=== PATIENT | male | born 1960 | race Caucasian/White ===

== ENCOUNTER 2017-09-30 09:00 | Outpatient (RCR) | payer OTHER, SELFPAY ==
--- NOTE | 2017-09-18 13:54 | HMH.PTOPEV ---
Rehab Outpatient Evaluation Rehab OP Evaluation Start: 09/18/17 12:54 Freq: Status: Active Protocol: Document 09/18/17 13:32 PHOROWDY (Rec: 09/18/17 13:45 PHORNE [id number]) Electronically Signed By Santiago Dixon, PT 09/18/17 13:32 Outpatient Therapy Subjective History Subjective History Pt presents with c/o pain in neck x ~ 2 yrs after a tree fell on me with no resulting fx, but sof tissue injury and OA of the C-spine. Pt does report he also suffered a right knee PCL tear when he was injured and has hx of chronic low back pain. 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 He reports no radicular symptoms in either UE, but does suffer from carpal tunnel syndrome [place]. Chief Complaint Pain Stiff Symptom Type Ache Symptoms Relieved By Nothing Symptoms Aggravated By Bending/Stooping Physical Activity Lifting Prior Functional Limitations None Current Functional Limitations Reaching Lifting Driving Sleeping Symptom Description Constant but Variable Level of pain today (0-10) 8 Pain scale - at its worst (0-10) 9 Cervical Eval Palpation Cervical Muscles R Cervical Paraspinal L Cervical Paraspinal R Upper Trapezius L Thoracic Paraspinals Cervical/Thoracic Palpation Findings Tenderness Flexibility Deficits Upper Trapezius Muscle Length (R) Mild Tightness (L) Mild Tightness Levaetor Scapulae Muscle Length (R) Mild Tightness (L) Mild Tightness Passive Joint Mobility Cervical PIVM Dec: R C6/7 L C6/7 R C7/T1 L C7/T1 WNL: R OA L OA R AA L AA R C2/3 L C2/3
== END 2017-09-30 09:05 | disposition home or self-care (01) ==
LOC: PT 09:00
PROVIDERS: PCP Nurse Practitioner Family; Visit Provider Nurse Practitioner Family
DX: M54.2 Cervicalgia (principal)
CPT/HCPCS: 97010; 97014; 97035; 97110; 97140; G0283

== ENCOUNTER → 2017-10-17 14:24 | Outpatient (CLI) | payer OTHER, SELFPAY ==
[2017-10-17 18:51] LABS: Amphetamine/Metha Screen,Urine Negative ng/mL (<1000); Barbiturates Screen,Urine Negative ng/mL (<200); Benzodiazepines Screen,Urine Negative ng/mL (200); Cannabinoid Screen,Urine Negative ng/mL (<50); Cocaine Screen,Urine Negative ng/g (<300); Methadone Screen,Urine Negative ng/mL (<300); Opiate Screen,Urine Negative ng/mL (<300); Phencyclidine Screen,Urine Negative ng/mL (<25)
== END ==
PROVIDERS: Visit Provider Nurse Practitioner Family
DX: Z79.899 Other long term (current) drug therapy (principal)
CPT/HCPCS: 80305

== ENCOUNTER → 2017-11-14 13:35 | Outpatient (CLI) | payer OTHER, SELFPAY ==
[2017-11-14 18:21] LABS: Amphetamine/Metha Screen,Urine Negative ng/mL (<1000); Barbiturates Screen,Urine Negative ng/mL (<200); Benzodiazepines Screen,Urine Negative ng/mL (200); Cannabinoid Screen,Urine Negative ng/mL (<50); Cocaine Screen,Urine Negative ng/g (<300); Methadone Screen,Urine Negative ng/mL (<300); Opiate Screen,Urine Negative ng/mL (<300); Phencyclidine Screen,Urine Negative ng/mL (<25)
== END ==
PROVIDERS: Visit Provider Nurse Practitioner Family
DX: Z79.899 Other long term (current) drug therapy (principal)
CPT/HCPCS: 80305

== ENCOUNTER → 2017-11-28 09:03 | Outpatient (CLI) | payer OTHER, SELFPAY ==
--- NOTE | 2017-11-28 09:06 | MR_ITS ---
MR cervical spine wo con COMPARISON: Plain films cervical spine 02/25/2017 HISTORY: Generalized neck pain TECHNIQUE: Standard sagittal and axial sequences were performed along with a myelogram sequence. FINDINGS: There is straightening of normal curvature suggesting muscle spasm. C1-C7 appear intact. The marrow signal is normal in all cervical vertebrae. The spinal canal is normal in size throughout. There is a small broad-based central right paracentral disc protrusion C4-5 resulting in mild neural foraminal narrowing on the right side. There is a similar bilateral foraminal disc protrusion C5-6 resulting in mild neural foraminal narrowing bilaterally at this level. The remaining disks all appear normal. The prevertebral soft tissues are normal and the odontoid is normal. IMPRESSION: Findings suggesting mild muscle spasm along with mild disc protrusions at the C4-5 and C5-6 levels abutting but not contouring the cervical cord but causing mild neural foraminal changes as described above.
== END ==
PROVIDERS: PCP Nurse Practitioner Family; Visit Provider Nurse Practitioner Family
DX: M54.2 Cervicalgia (principal)
CPT/HCPCS: 72141; 76376

== ENCOUNTER → 2017-12-22 10:11 | Outpatient (POV) | payer OTHER, SELFPAY ==
[2017-12-22 10:19] VITALS: BP 161/98; PULSE 84; RESP 20; TEMP 36.6; O2SAT 99
--- NOTE | 2017-12-22 11:29 | HMH.PMCON ---
Assessment and Plan (1) Degenerative disc disease, cervical Current visit: Yes Status: Chronic Category: Medical Code(s): M50.30 - Other cervical disc degeneration, unspecified cervical region (2) Cervical radiculopathy Current visit: Yes Status: Chronic Category: Medical Code(s): M54.12 - Radiculopathy, cervical region - Assessment and plan all Dx Assessment and Plan for all problems:: We will plan a cervical epidural steroid injection at C5-C6. Patient's ORT score is 6 today. Patient is on tramadol and gabapentin from his primary care physician. Since tried and failed physical therapy, medications, anti-inflammatories. Patient has not tried injective therapy. Patient is not on any anticoagulation therapy. I will follow-up with him after his cervical epidural steroid injection. We will reassess his symptoms at that time. This note was dictated using voice recognition software and may contain errors or omissions HPI - Data of Consult Consult date: 12/22/17 Requesting Physician: Layla Yusuf APRN Primary Care Provider: Larry Smith APRN Family Provider: Larry Teixeira APRN - Consult Narrative Reason for consult: Neck pain History of present illness: Mr. Mcleod is a 57 year old male who presents today for consultation in regards to his neck pain. Patient has low neck pain along with bilateral arm pain. Patient also suffers from carpal tunnel. Patient has a recent MRI showing degenerative disc disease along with some disc protrusions. Patient states his pain is a 8 out of 10 today. He states it is constant. Patient does take tramadol and gabapentin to help alleviate his pain. 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 Patient states that 2 years ago a tree fell on top of him and that is when his symptoms began. Patient states that all activity increases his pain well medication decreases his pain. Patient states that he had been going to a pain clinic at [place] however it had since shut down. Patient has not tried injective therapy. Patient has tried physical therapy. Patient is interested in any method of treatment that will help his pain. Patient would like to continue working. CC: Layla Yusuf APRN [facility] History I have reviewed the patient's past medical history: Yes 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: Reports:: Anxiety, Depression, Gastroesophageal Reflux Disease(GERD) Denies:: Diabetes Mellitus Type 1, Diabetes Mellitus Type 2 Other 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: Reports: Arthritis, Hypothyroidism, Thyroid Disease, Other Other Surgeries: Yes: Hernia Repair Amputation: No Fractures: No - *Social History Smoking Status: Never smoker Alcohol Intake: never Alcohol Intake Frequency:: 3 or more drinks per day Substance Use Type: denies use Occupational Status: employed Housing: apartment Household Members: none - Psychiatric History Expresses thoughts of harming self/others: None Suicide Plan Description: No Plan Pschychiatric History:: Reports:: Anxiety, Depression *Family Hx:: Non-contributory Review of Systems - Review of Systems ROS General: no recent weight change, no fever, no sleep disturbances Respiratory: no cough, no shortness of air, no recurring pulmonary infections Cardiovascular/Peripheral Vascular: No chest pain, No palpitations, no edema, no shortness of breath. Gastrointestinal: no incontinence, normal bowel movements reported Genitourinary: no incontinence Musculoskeletal: Neck pain, bilateral arm pain Psychiatric: normal mood/ affect Neurological: Weakness in upper extremities at times, [denies balance issues] Meds Home Medications Medication Instructions Recorded Confirmed Type Tramadol HCl [Ultram Take Home 50 mg PO BID 12/22/17 12/22/17 History Pack 50mg (10)] Allergies Allergy/AdvReac Type Severity Reaction Status Date / Time No Known Allergies Allergy Verified 12/12/17 14:35 Objective Vital signs: Temp Pulse Resp BP Puls
--- NOTE | 2017-12-22 11:32 | P.CONS_ITS ---
Assessment and Plan (1) Degenerative disc disease, cervical Current visit: Yes Status: Chronic Category: Medical Code(s): M50.30 - Other cervical disc degeneration, unspecified cervical region (2) Cervical radiculopathy Current visit: Yes Status: Chronic Category: Medical Code(s): M54.12 - Radiculopathy, cervical region - Assessment and plan all Dx Assessment and Plan for all problems:: We will plan a cervical epidural steroid injection at C5-C6. Patient's ORT score is 6 today. Patient is on tramadol and gabapentin from his primary care physician. Since tried and failed physical therapy, medications, anti- inflammatories. Patient has not tried injective therapy. Patient is not on any anticoagulation therapy. I will follow-up with him after his cervical epidural steroid injection. We will reassess his symptoms at that time. This note was dictated using voice recognition software and may contain errors or omissions HPI - Data of Consult Consult date: 12/22/17 Requesting Physician: Layla Yusuf APRN Primary Care Provider: Larry Smith APRN Family Provider: Larry Teixeira APRN - Consult Narrative Reason for consult: Neck pain History of present illness: Mr. Mcleod is a 57 year old male who presents today for consultation in regards to his neck pain. Patient has low neck pain along with bilateral arm pain. Patient also suffers from carpal tunnel. Patient has a recent MRI showing degenerative disc disease along with some disc protrusions. Patient states his pain is a 8 out of 10 today. He states it is constant. Patient does take tramadol and gabapentin to help alleviate his pain. 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 Patient states that 2 years ago a tree fell on top of him and that is when his symptoms began. Patient states that all activity increases his pain well medication decreases his pain. Patient states that he had been going to a pain clinic at [place] however it had since shut down. Patient has not tried injective therapy. Patient has tried physical therapy. Patient is interested in any method of treatment that will help his pain. Patient would like to continue working. CC: Layla Yusuf APRN [facility] History I have reviewed the patient's past medical history: Yes 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: Reports:: Anxiety, Depression, Gastroesophageal Reflux Disease( GERD) Denies:: Diabetes Mellitus Type 1, Diabetes Mellitus Type 2 Other 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: Reports: Arthritis, Hypothyroidism, Thyroid Disease, Other Other Surgeries: Yes: Hernia Repair Amputation: No Fractures: No - *Social History Smoking Status: Never smoker Alcohol Intake: never Alcohol Intake Frequency:: 3 or more drinks per day Substance Use Type: denies use Occupational Status: employed Housing: apartment Household Members: none - Psychiatric History Expresses thoughts of harming self/others: None Suicide Plan Description: No Plan Pschychiatric History:: Reports:: Anxiety, Depression *Family Hx:: Non-contributory Review of Systems - Review of Systems ROS General: no recent weight change, no fever, no sleep disturbances Respiratory: no cough, no shortness of air, no recurring pulmonary infections Cardiovascular/Peripheral Vascular: No chest pain, No palpitations, no edema, no shortness of breath. Gastrointestinal: no incontinence, normal bowel movements reported Genitourinary: no incontinence Musculoskeletal: Neck pain, bilateral arm pain Psychiatric: normal mood/ affect Neurological: Weakness in upper extr
== END ==
PROVIDERS: PCP Nurse Practitioner Family; Visit Provider Clinical Nurse Specialist Family Health
DX: M50.30 Other cervical disc degeneration, unspecified cervical region (principal); M54.12 Radiculopathy, cervical region
CPT/HCPCS: 99202

== ENCOUNTER → 2018-01-01 14:24 | Outpatient (POV) | payer OTHER, SELFPAY | PROVIDERS: PCP Nurse Practitioner Family; Visit Provider Neurological Surgery | DX: Z00.00 Encounter for general adult medical examination without abnormal findings (principal) ==

== ENCOUNTER → 2018-03-13 13:03 | Outpatient (REF) | payer OTHER, SELFPAY ==
[2018-03-17 16:56] LABS: Amphetamine/Metha Screen,Urine Negative ng/mL (<1000); Barbiturates Screen,Urine Negative ng/mL (<200); Benzodiazepines Screen,Urine Negative ng/mL (<200); Cannabinoid Screen,Urine Negative ng/mL (<50); Cocaine Screen,Urine Negative ng/mL (<300); Methadone Screen,Urine Negative ng/mL (<300); Opiate Screen,Urine Negative ng/mL (<300); Phencyclidine Screen,Urine Negative ng/mL (<25)
== END ==
LOC: LAB 13:03
PROVIDERS: Visit Provider Nurse Practitioner Family
DX: G62.9 Polyneuropathy, unspecified (principal); M54.12 Radiculopathy, cervical region
CPT/HCPCS: 80305

== ENCOUNTER → 2018-04-14 13:03 | Outpatient (REF) | payer OTHER, SELFPAY ==
[2018-04-14 17:00] LABS: Amphetamine/Metha Screen,Urine Negative ng/mL (<1000); Barbiturates Screen,Urine Negative ng/mL (<200); Benzodiazepines Screen,Urine Negative ng/mL (<200); Cannabinoid Screen,Urine Negative ng/mL (<50); Cocaine Screen,Urine Negative ng/mL (<300); Methadone Screen,Urine Negative ng/mL (<300); Opiate Screen,Urine Negative ng/mL (<300); Phencyclidine Screen,Urine Negative ng/mL (<25)
== END ==
LOC: LAB 13:03
PROVIDERS: Visit Provider Nurse Practitioner Family
DX: Z79.899 Other long term (current) drug therapy (principal)
CPT/HCPCS: 80305

== ENCOUNTER → 2018-06-11 18:44 | Outpatient (CLI) | payer OTHER, SELFPAY ==
[2018-06-12 11:18] LABS: Basophils # 0.1 K/mm3 (0-0.2); Basophils % 0.6 % (0.1-2.0); Eosinophils # 0.1 K/mm3 (0.0-0.4); Eosinophils % 1.5 % (0.1-12.0); Hematocrit 50.5 % (42.0-52.0); Hemoglobin 16.1 g/dL (14.1-18.0); Lymphocytes # 2.1 K/mm3 (0.7-4.5); Lymphocytes % 23.7 K/mm3 (10-50); Mean Corpuscular HGB Conc 31.9 g/dL (31.8-35.4); Mean Corpuscular Hemoglobin 30.4 pg (27.0-31.2); Mean Corpuscular Volume 95.3 fl (80-94); Mean Platelet Volume 8.8 fl (7.4-10.4); Monocytes # 0.7 K/mm3 (0.1-1.0); Monocytes % 8.3 % (1.7-9.3); Neutrophils # 5.8 K/mm3 (1.8-7.8); Neutrophils % 65.9 % (37.0-80.0); Platelet Count 265 K/mm3 (142-424); Red Cell Distribution Width 13.5 % (11.5-17.5); White Blood Count 8.8 K/mm3 (4.8-10.8)
[2018-06-12 12:59] LABS: Alanine Aminotransferase 31 U/L (12-78); Albumin/Globulin Ratio 1.1 (1.1-1.8); Alkaline Phosphatase 93 U/L (46-116); Anion Gap 15.2 mEq/L (5-15); Aspartate Amino Transferase 21 U/L (15-37); Bilirubin,Total 0.6 mg/dL (0.2-1.0); Blood Urea Nitrogen 13 mg/dL (7-18); Carbon Dioxide 25 mmol/L (21.0-32.0); Chloride 101 mmol/L (98-107); Chol/HDL Ratio 4.1 (1-3.5); Cholesterol 203 mg/dL (140-200); Creatinine,Serum 1.01 mg/dL (0.70-1.30); Estimated Glomerular Filt Rate 76 ml/min (>60); GFR (African American) 92 ML/MIN (>60); Globulin 3.5 gm/dl (1.3-3.2); Glucose 94 mg/dL (74-106); HDL Cholesterol 49 mg/dL (27-67); LDL Cholesterol 134 mg/dL (0-130); Potassium 4.2 mmoL/L (3.5-5.1); Sodium 137 mmol/L (136-145); T4 (Thyroxine) 6.8 ug/dl (4.7-13.3); Total Protein,Serum 7.5 gm/dL (6.4-8.2); Triglycerides 102 mg/dL (30-200); VLDL Cholesterol 20 mg/dL (0-40)
== END ==
PROVIDERS: PCP Nurse Practitioner Family; Visit Provider Nurse Practitioner Family
DX: F41.9 Anxiety disorder, unspecified (principal); G62.9 Polyneuropathy, unspecified; I10 Essential (primary) hypertension
CPT/HCPCS: 80053; 80061; 84436; 84443; 85025

== ENCOUNTER → 2018-07-14 18:05 | Outpatient (CLI) | payer OTHER, SELFPAY ==
[2018-07-14 19:11] LABS: Amphetamine/Metha Screen,Urine Negative ng/mL (<1000); Barbiturates Screen,Urine Negative ng/mL (<200); Benzodiazepines Screen,Urine Negative ng/mL (<200); Cannabinoid Screen,Urine Negative ng/mL (<50); Cocaine Screen,Urine Negative ng/mL (<300); Methadone Screen,Urine Negative ng/mL (<300); Opiate Screen,Urine Negative ng/mL (<300); Phencyclidine Screen,Urine Negative ng/mL (<25)
== END ==
PROVIDERS: Visit Provider Nurse Practitioner Family
DX: Z79.899 Other long term (current) drug therapy (principal)
CPT/HCPCS: 80305

== ENCOUNTER → 2018-08-13 10:51 | Outpatient (CLI) | payer OTHER, SELFPAY ==
[2018-08-13 11:18] LABS: Basophils # 0.1 K/mm3 (0-0.2); Basophils % 0.6 % (0.1-2.0); Eosinophils # 0.2 K/mm3 (0.0-0.4); Eosinophils % 2.2 % (0.1-12.0); Hematocrit 47.4 % (42.0-52.0); Hemoglobin 15.8 g/dL (14.1-18.0); Lymphocytes # 1.7 K/mm3 (0.7-4.5); Lymphocytes % 21.2 % (10-50); Mean Corpuscular HGB Conc 33.3 g/dL (31.8-35.4); Mean Corpuscular Hemoglobin 30.7 pg (27.0-31.2); Mean Corpuscular Volume 92.1 fl (80-94); Monocytes # 0.5 K/mm3 (0.1-1.0); Monocytes % 6.3 % (1.7-9.3); Neutrophils # 5.5 K/mm3 (1.8-7.8); Neutrophils % 69.7 % (37.0-80.0); Platelet Count 232 K/mm3 (142-424); Red Blood Count 5.15 M/mm3 (4.60-6.20); Red Cell Distribution Width 13.5 % (11.5-17.5); White Blood Count 7.9 K/mm3 (4.8-10.8)
[2018-08-13 12:14] LABS: Erythrocyte Sedimentation Rate 18 mm/hr (0-20)
[2018-08-13 12:26] LABS: Alanine Aminotransferase 27 U/L (12-78); Albumin Level 3.4 gm/dL (3.4-5.0); Alkaline Phosphatase 87 U/L (46-116); Anion Gap 12.2 mEq/L (5-15); Aspartate Amino Transferase 15 U/L (15-37); Bilirubin,Total 0.3 mg/dL (0.2-1.0); Blood Urea Nitrogen 19 mg/dL (7-18); C-Reactive Protein 1.6 mg/L (0.0-0.9); Calcium 8.6 mg/dL (8.5-10.1); Carbon Dioxide 29 mmol/L (21.0-32.0); Chloride 104 mmol/L (98-107); Creatinine,Serum 1.11 mg/dL (0.70-1.30); Estimated Glomerular Filt Rate 69 ml/min (>60); GFR (African American) 83 ML/MIN (>60); Globulin 3.3 gm/dl (1.3-3.2); Glucose 114 mg/dL (74-106); Potassium 4.2 mmoL/L (3.5-5.1); Sodium 141 mmol/L (136-145); Total Protein,Serum 6.7 gm/dL (6.4-8.2)
[2018-08-14 12:11] LABS: Anti-Centromere B Antibodies <0.2 AI (0.0-0.9); Anti-Jo-1 <0.2 AI (0.0-0.9); Anti-Smith Antibody <0.2 AI (0.0-0.9); Antichromatin Antibodies <0.2 AI (0.0-0.9); Antiscleroderma-70 Antibodies <0.2 AI (0.0-0.9); RNP Antibodies <0.2 AI (0.0-0.9); Sjogren's Anti-SS-A <0.2 AI (0.0-0.9); Sjogren's Anti-SS-B <0.2 AI (0.0-0.9)
[2018-08-15 10:55] LABS: Anti-Cyclic Citrullinated Pept 20 units (0-19); Anti-DNA (DS) Ab Qn 2 IU/mL (0-9); RA Latex Turbid. 10.3 IU/mL (0.0-13.9)
[2018-08-16 13:08] LABS: PTT-LA 58.2 sec (0.0-51.9); PTT-LA Incub Mix 53.4 sec (0.0-48.9); PTT-LA Mix 46.5 sec (0.0-48.9); dRVVT 57.7 sec (0.0-47.0); dRVVT Mix 45.8 sec (0.0-47.0)
[2018-08-16 21:45] LABS: Hexagonal Phase Phospholipid 25 sec (0-11); Lupus Reflex Interpretation Comment: (.)
== END ==
PROVIDERS: Visit Provider Nurse Practitioner Family
DX: M54.12 Radiculopathy, cervical region (principal)
CPT/HCPCS: 36415; 80053; 85025; 85613; 85651; 86140; 86200; 86225; 86235; 86431

== ENCOUNTER → 2018-10-19 09:25 | Outpatient (POV) | payer OTHER, SELFPAY ==
[2018-10-19 09:45] VITALS: BP 149/98; PULSE 87; RESP 18; O2SAT 98; BMI 35.5
--- NOTE | 2018-10-19 09:56 | HMH.PAINSOAP ---
[facility] Pain Management SOAP Note Subjective:: Patient is a pleasant 58-year-old white male who presents today for follow-up. Patient has cervical epidural steroid injection last year. Patient did not get any relief from that. He then went to [place] pain management and received facet joint injections in which he did not get relief for. He was seen by Dr. Chamorro which deemed him not a cervical surgical candidate. Patient states that most of his pain at this time is in his low back. He states that he has difficulty with walking long distances and finds himself leaning over in order to get relief. He rates his pain a 7 out of 10 today. He states is constant. Patient is recently done physical therapy and is continuing his home stretching program. ROS General: no recent weight change, no fever, no sleep disturbances Respiratory: no cough, no shortness of air, no recurring pulmonary infections Cardiovascular/Peripheral Vascular: No chest pain, No palpitations, no edema, no shortness of breath. Gastrointestinal: no incontinence, normal bowel movements reported Genitourinary: no incontinence Musculoskeletal: Back pain, neck pain Psychiatric: normal mood/ affect Neurological: Weakness bilateral lower extremities while walking, [denies balance issues] Objective:: Physical Exam General: Alert and oriented x3, no acute distress, pleasant and cooperative, [on room air] Lungs: Resps E/U, Symmetrical chest expansion, Eyes: PERRL Musculoskeletal: Flexion and extension of lumbar spine somewhat guarded secondary to pain, deep tendon reflexes normal, strength in upper and lower extremities [5/5], [abnormal gait noted] Neurological: speech clear, drag sawyer equal, no gross sensory deficits Assessment:: Degenerative disc disease cervical and lumbar, cervical radiculopathy lumbar radiculopathy, spinal stenosis Plan:: Patient does not have any recent lumbar imaging I believe it would be beneficial to order new lumbar imaging in order to determine pathology. Patient may be a candidate for a mildly invasive procedure in order to correct this issue. I will follow-up with the patient after his lumbar MRI. Dr. Gonzalez has reviewed this note and agrees with this plan of care. This note was dictated using voice recognition software and may contain errors or omissions
--- NOTE | 2018-10-19 09:59 | P.CONS_ITS ---
[facility] Pain Management SOAP Note Subjective:: Patient is a pleasant 58-year-old white male who presents today for follow-up. Patient has cervical epidural steroid injection last year. Patient did not get any relief from that. He then went to [place] pain management and received facet joint injections in which he did not get relief for. He was seen by Dr. Chamorro which deemed him not a cervical surgical candidate. Patient states that most of his pain at this time is in his low back. He states that he has difficulty with walking long distances and finds himself leaning over in order to get relief. He rates his pain a 7 out of 10 today. He states is constant. Patient is recently done physical therapy and is continuing his home stretching program. ROS General: no recent weight change, no fever, no sleep disturbances Respiratory: no cough, no shortness of air, no recurring pulmonary infections Cardiovascular/Peripheral Vascular: No chest pain, No palpitations, no edema, no shortness of breath. Gastrointestinal: no incontinence, normal bowel movements reported Genitourinary: no incontinence Musculoskeletal: Back pain, neck pain Psychiatric: normal mood/ affect Neurological: Weakness bilateral lower extremities while walking, [denies balance issues] Objective:: Physical Exam General: Alert and oriented x3, no acute distress, pleasant and cooperative, [on room air] Lungs: Resps E/U, Symmetrical chest expansion, Eyes: PERRL Musculoskeletal: Flexion and extension of lumbar spine somewhat guarded secondary to pain, deep tendon reflexes normal, strength in upper and lower extremities [5/5], [abnormal gait noted] Neurological: speech clear, branch administrator equal, no gross sensory deficits Assessment:: Degenerative disc disease cervical and lumbar, cervical radiculopathy lumbar radiculopathy, spinal stenosis Plan:: Patient does not have any recent lumbar imaging I believe it would be beneficial to order new lumbar imaging in order to determine pathology. Patient may be a candidate for a mildly invasive procedure in order to correct this issue. I will follow-up with the patient after his lumbar MRI. Dr. Gonzalez has reviewed this note and agrees with this plan of care. This note was dictated using voice recognition software and may contain errors or omissions
== END ==
PROVIDERS: PCP Nurse Practitioner Family; Visit Provider Clinical Nurse Specialist Family Health
DX: M50.10 Cervical disc disorder with radiculopathy, unspecified cervical region (principal); M51.16 Intervertebral disc disorders with radiculopathy, lumbar region
CPT/HCPCS: 99213

== ENCOUNTER → 2018-10-23 14:31 | Outpatient (CLI) | payer OTHER, SELFPAY ==
[2018-10-23 18:20] LABS: Amphetamine/Metha Screen,Urine Negative ng/mL (<1000); Barbiturates Screen,Urine Negative ng/mL (<200); Benzodiazepines Screen,Urine Negative ng/mL (<200); Cannabinoid Screen,Urine Negative ng/mL (<50); Cocaine Screen,Urine Negative ng/mL (<300); Methadone Screen,Urine Negative ng/mL (<300); Opiate Screen,Urine Negative ng/mL (<300); Phencyclidine Screen,Urine Negative ng/mL (<25)
== END ==
PROVIDERS: Visit Provider Nurse Practitioner Family
DX: G62.9 Polyneuropathy, unspecified (principal)
CPT/HCPCS: 80305

== ENCOUNTER → 2018-11-09 11:00 | Outpatient (POV) | payer OTHER, SELFPAY ==
[2018-11-09 11:30] VITALS: BP 165/87; PULSE 83; RESP 18; O2SAT 98; BMI 37.1
--- NOTE | 2018-11-09 11:54 | XR_ITS ---
EXAM: XR lumbar spine min 4V HISTORY: Low back pain radiating down both legs ITS.REASON: BACK PAIN ORDERING PHYSICIAN: Layla Yusuf PATIENT AGE: 58 years COMPARISON: 02/25/2017 FINDINGS: Normal alignment. Anterior osteophytes are present at L2, L3, L4, and L5. No fracture or dislocation. No lytic or blastic change. IMPRESSION: Mild degenerative changes, no acute finding with no significant change
--- NOTE | 2018-11-10 07:56 | P.CONS_ITS ---
[facility] Pain Management SOAP Note Subjective:: Patient is a pleasant 58-year-old white male who presents today for follow-up. Patient recently had his MRI denied by insurance. We will get a x-ray today to see if this is something we need to look further into. Most of his pain is in his low back and bilateral legs. He finds that he has weakness in his legs at times. He rates his pain a 7 out of 10 which is constant. He is finished 6 months of conservative therapy that includes both physical therapy and occasions. Patient is continuing a home stretching program and currently on anti-inflammatories. ROS General: no recent weight change, no fever, no sleep disturbances Respiratory: no cough, no shortness of air, no recurring pulmonary infections Cardiovascular/Peripheral Vascular: No chest pain, No palpitations, no edema, no shortness of breath. Gastrointestinal: no incontinence, normal bowel movements reported Genitourinary: no incontinence Musculoskeletal: Back pain, neck pain, leg pain Psychiatric: normal mood/ affect Neurological: Weakness in bilateral legs at times especially while walking, [denies balance issues] Objective:: Physical Exam General: Alert and oriented x3, no acute distress, pleasant and cooperative, [on room air] Lungs: Resps E/U, Symmetrical chest expansion, Eyes: PERRL Musculoskeletal: Flexion and extension of lumbar spine somewhat guarded secondary to pain, deep tendon reflexes normal, strength in upper 5/5 and lower extremities 4/5, [abnormal gait noted] Neurological: speech clear, vp site equal, no gross sensory deficits Assessment:: Degenerative disc disease lumbar and cervical spine with lumbar and cervical radiculopathy Plan:: We did get an x-ray showing some abnormalities I believe a MRI will help us better determine the pathology of his pain. I will follow-up with the patient after his MRI and reassess his symptoms at that time. He has been instructed to call the office if he has any issues prior to his next appointment. Dr. Gonzalez has reviewed this note and agrees with this plan of care. This note was dictated using voice recognition software and may contain errors or omissions
== END ==
PROVIDERS: PCP Nurse Practitioner Family; Visit Provider Clinical Nurse Specialist Family Health
DX: M51.36 Other intervertebral disc degeneration, lumbar region (principal); M50.10 Cervical disc disorder with radiculopathy, unspecified cervical region; M54.9 Dorsalgia, unspecified
CPT/HCPCS: 72110; 99213

== ENCOUNTER → 2018-12-01 11:07 | Outpatient (POV) | payer OTHER, SELFPAY ==
[2018-12-01 12:05] VITALS: BP 137/86; PULSE 79; RESP 18; O2SAT 98; BMI 37.1
--- NOTE | 2018-12-01 13:08 | HMH.PAINSOAP ---
[facility] Pain Management SOAP Note Subjective:: Is a pleasant 58-year-old white male who presents today for follow-up. Patient has quite a bit of neck and low back pain. Patient and I had a discussion in regards to neuro stimulation today. He is interested in pursuing this. Patient has an MRI showing degenerative changes of the cervical spine and also degenerative changes of his back were seen on x-ray. Patient has tried and failed epidural injections along with physical therapy. Patient has tried and failed multiple medications. He rates his pain a constant 7 out of 10. He has finished over 6 months of conservative therapy including the physical therapy. Patient has failed to have any progression or improvement within the last 6 months. Patient is actually worsening. He is trying to continue home stretching program however he is becoming less and less able. Patient is currently on anti-inflammatories. ROS General: no recent weight change, no fever, no sleep disturbances Respiratory: no cough, no shortness of air, no recurring pulmonary infections Cardiovascular/Peripheral Vascular: No chest pain, No palpitations, no edema, no shortness of breath. Gastrointestinal: no incontinence, normal bowel movements reported Genitourinary: no incontinence Musculoskeletal: Back pain, neck pain, leg pain, arm pain Psychiatric: normal mood/ affect Neurological: Weakness upper extremities at times, [denies balance issues] Objective:: Physical Exam General: Alert and oriented x3, no acute distress, pleasant and cooperative, [on room air] Lungs: Resps E/U, Symmetrical chest expansion, Eyes: PERRL Musculoskeletal: Flexion and extension of cervical and lumbar spine somewhat guarded secondary to pain, deep tendon reflexes normal, strength in upper and lower extremities [5/5], [abnormal gait noted] Neurological: speech clear, corporate account executive equal, no gross sensory deficits Assessment:: Degenerative disc disease cervical and lumbar spine with cervical and lumbar radiculopathy, CRPS type II Plan:: We will set him up for a neurostimulator trial. We will cover both cervical and lumbar spine pain along with the radiculopathy. I will follow-up with the patient after his psychological evaluation to help determine if he is a good candidate for this. He is not on any anticoagulation therapy. Dr. Gonzalez has reviewed this note and agrees with this plan of care. This note was dictated using voice recognition software and may contain errors or omissions
== END ==
PROVIDERS: PCP Nurse Practitioner Family; Visit Provider Clinical Nurse Specialist Family Health
DX: M50.10 Cervical disc disorder with radiculopathy, unspecified cervical region (principal); M54.16 Radiculopathy, lumbar region
CPT/HCPCS: 99212

== ENCOUNTER → 2018-12-18 13:55 | Outpatient (CLI) | payer OTHER, SELFPAY ==
[2018-12-18 15:14] LABS: Amphetamine/Metha Screen,Urine Negative ng/mL (<1000); Barbiturates Screen,Urine Negative ng/mL (<200); Benzodiazepines Screen,Urine Negative ng/mL (<200); Cannabinoid Screen,Urine Negative ng/mL (<50); Cocaine Screen,Urine Negative ng/mL (<300); Methadone Screen,Urine Negative ng/mL (<300); Opiate Screen,Urine Negative ng/mL (<300); Phencyclidine Screen,Urine Negative ng/mL (<25)
== END ==
PROVIDERS: Visit Provider Nurse Practitioner Family
DX: Z79.899 Other long term (current) drug therapy (principal)
CPT/HCPCS: 80305

== ENCOUNTER → 2019-02-01 14:27 | Outpatient (CLI) | payer OTHER, SELFPAY ==
--- NOTE | 2019-02-01 14:29 | US_ITS ---
MM Dig mamm BI DX w/CAD, US breast RT complete INDICATION: Palpable right breast nodule ORDERING PHYSICIAN: Larry Smith APRN PATIENT AGE: 58 years COMPARISON: None TECHNIQUE: Standard images performed along spot compression views of the right breast FINDINGS: There is heterogeneously dense fibroglandular tissue in the right retroareolar region consistent with gynecomastia. No malignant appearing mass or malignant appearing microcalcification is evident. Ultrasound right breast: Irregular hypoechoic fibroglandular tissue noted in the retroareolar region consistent with gynecomastia. IMPRESSION: Gynecomastia on the right. No evidence of malignancy BI-RADS Category: 2 Benign Finding(s) Follow-up suggested as clinically warranted (A letter has been sent to the patient regarding results of the study.)
== END ==
PROVIDERS: PCP Nurse Practitioner Family; Visit Provider Nurse Practitioner Family
DX: N64.4 Mastodynia (principal)
CPT/HCPCS: 76641; 77066

== ENCOUNTER → 2019-02-09 14:23 | Outpatient (CLI) | payer OTHER, SELFPAY ==
[2019-02-09 14:51] LABS: Amphetamine/Metha Screen,Urine Negative ng/mL (<1000); Barbiturates Screen,Urine Negative ng/mL (<200); Benzodiazepines Screen,Urine Negative ng/mL (<200); Cannabinoid Screen,Urine Negative ng/mL (<50); Cocaine Screen,Urine Negative ng/mL (<300); Methadone Screen,Urine Negative ng/mL (<300); Opiate Screen,Urine Negative ng/mL (<300); Phencyclidine Screen,Urine Negative ng/mL (<25)
== END ==
PROVIDERS: Visit Provider Nurse Practitioner Family
DX: Z79.899 Other long term (current) drug therapy (principal)
CPT/HCPCS: 80305

== ENCOUNTER → 2019-03-05 13:44 | Outpatient (CLI) | payer OTHER, SELFPAY ==
[2019-03-05 14:13] LABS: Amphetamine/Metha Screen,Urine Negative ng/mL (<1000); Barbiturates Screen,Urine Negative ng/mL (<200); Benzodiazepines Screen,Urine Negative ng/mL (<200); Cannabinoid Screen,Urine Negative ng/mL (<50); Cocaine Screen,Urine Negative ng/mL (<300); Methadone Screen,Urine Negative ng/mL (<300); Opiate Screen,Urine Negative ng/mL (<300); Phencyclidine Screen,Urine Negative ng/mL (<25)
== END ==
PROVIDERS: Visit Provider Nurse Practitioner Family
DX: Z79.899 Other long term (current) drug therapy (principal)
CPT/HCPCS: 80305

== ENCOUNTER → 2019-04-09 14:37 | Outpatient (CLI) | payer OTHER, SELFPAY ==
--- NOTE | 2019-04-09 14:41 | XR_ITS ---
PROCEDURE: XR ANKLE RT MIN 3V CLINICAL INDICATION: Right ankle fx Follow-up fracture COMPARISON: XR ANKLE RT MIN 3V from 04/01/2019 XR ANKLE RT MIN 3V from 04/01/2019 FINDINGS: Status post closed reduction lateral malleolar and medial malleolar fractures. There is good alignment of the lateral malleolar fracture. The medial malleolar fracture is distracted distally by 6 mm with mild anterior displacement by 1 cm and mild lateral displacement by 5 mm. A cast is in place IMPRESSION: Status post close reduction distal tib fib fracture with improvement in alignment and displacement with some residual distraction and displacement of the medial malleolar fracture Dictated by: Akbar Ramirez MD 04/09/2019 15:26 Signed by: <Electronically signed by Akbar Ramirez MD in [place]> 04/09/2019 15:26
== END ==
PROVIDERS: PCP Nurse Practitioner Family; Visit Provider Orthopaedic Surgery
DX: S82.891A Other fracture of right lower leg, initial encounter for closed fracture (principal)
CPT/HCPCS: 73610

== ENCOUNTER → 2019-04-12 12:06 | Outpatient (CLI) | payer OTHER, SELFPAY ==
[2019-04-12 12:22] LABS: Basophils # 0.1 K/mm3 (0-0.2); Basophils % 0.8 % (0.1-2.0); Eosinophils # 0.2 K/mm3 (0.0-0.4); Eosinophils % 2.8 % (0.1-12.0); Hematocrit 44.4 % (42.0-52.0); Hemoglobin 14.7 g/dL (14.1-18.0); Lymphocytes # 1.4 K/mm3 (0.7-4.5); Lymphocytes % 18.8 % (10-50); Mean Corpuscular HGB Conc 33.1 g/dL (31.8-35.4); Mean Corpuscular Hemoglobin 30.9 pg (27.0-31.2); Mean Corpuscular Volume 93.3 fl (80-94); Mean Platelet Volume 7.2 fl (7.4-10.4); Monocytes # 0.6 K/mm3 (0.1-1.0); Monocytes % 8.6 % (1.7-9.3); Neutrophils # 4.9 K/mm3 (1.8-7.8); Neutrophils % 69.1 % (37.0-80.0); Platelet Count 244 K/mm3 (142-424); Red Blood Count 4.76 M/mm3 (4.60-6.20); Red Cell Distribution Width 13.1 % (11.5-17.5); White Blood Count 7.2 K/mm3 (4.8-10.8)
--- NOTE | 2019-04-12 12:26 | ECG_ITS ---
APPROVED REPORT Exam: Resting ECG HR:84 bpm ECG Measurements Heart Rate 84 AXES UT 142 P 28 QRSd 86 QRS 3 QT 350 T 23 QTc 413 <Conclusion> Normal sinus rhythm Normal ECG Electronically signed by : Josué Espinoza, 04/12/2019 16:05:24
--- NOTE | 2019-04-12 12:26 | XR_ITS ---
PROCEDURE: XR CHEST 2V CLINICAL HISTORY: Pre-op, htn Hypertension COMPARISON: CXR CHEST(2 VIEWS-NOT PORTABLE) from 08/16/2014 FINDINGS: Normal heart size. Mediastinum is slightly prominent and may be secondary to tortuosity/ectasia of the aorta. Not significantly changed Old granulomatous disease No acute bony abnormalities. IMPRESSION: No change with no acute finding Dictated by: Akbar Ramirez MD 04/12/2019 15:12 Signed by: <Electronically signed by Akbar Ramirez MD in [place]> 04/12/2019 15:12
[2019-04-12 12:30] LABS: INR 0.98 (0.9-1.1); Prothrombin Time 10.2 seconds (9.4-11.8)
[2019-04-12 13:08] LABS: Alanine Aminotransferase 22 U/L (12-78); Albumin Level 3.2 gm/dL (3.4-5.0); Albumin/Globulin Ratio 0.9 (1.1-1.8); Alkaline Phosphatase 79 U/L (46-116); Anion Gap 12.5 mEq/L (5-15); Aspartate Amino Transferase 11 U/L (15-37); Bilirubin,Total 0.3 mg/dL (0.2-1.0); Blood Urea Nitrogen 21 mg/dL (7-18); Calcium 8.8 mg/dL (8.5-10.1); Carbon Dioxide 28 mmol/L (21.0-32.0); Chloride 103 mmol/L (98-107); Creatinine,Serum 1.01 mg/dL (0.70-1.30); Estimated Glomerular Filt Rate 76 ml/min (>60); GFR (African American) 92 ML/MIN (>60); Globulin 3.4 gm/dl (1.3-3.2); Glucose 104 mg/dL (74-106); Potassium 4.5 mmoL/L (3.5-5.1); Sodium 139 mmol/L (136-145); Total Protein,Serum 6.6 gm/dL (6.4-8.2)
== END ==
PROVIDERS: Visit Provider Orthopaedic Surgery
DX: S82.891A Other fracture of right lower leg, initial encounter for closed fracture (principal); S82.851A Displaced trimalleolar fracture of right lower leg, initial encounter for closed fracture; S93.04XA Dislocation of right ankle joint, initial encounter
CPT/HCPCS: 36415; 71046; 80053; 85025; 85610; 93005

== ENCOUNTER → 2019-04-26 08:55 | Outpatient (CLI) | payer OTHER, SELFPAY ==
--- NOTE | 2019-04-26 08:59 | XR_ITS ---
PROCEDURE: XR ANKLE RT MIN 3V CLINICAL INDICATION: Ankle dislocation Follow-up ORIF COMPARISON: XR ANKLE RT MIN 3V from 04/01/2019 XR ANKLE RT MIN 3V from 04/09/2019 XR ANKLE RT 2V from 04/15/2019 FINDINGS: Status post ORIF bimalleolar fracture with a bone plate along the distal aspect of the fibula and 2 screws stabilizing the medial malleolar fracture. There is good alignment of the fracture fragments. Artifact is present from overlying splint. Skin clips are present as well. The ankle mortise does not appear widened IMPRESSION: Good alignment status post ORIF distal tib fib fracture Dictated by: Akbar Ramirez MD 04/26/2019 10:37 Electronically signed by Akbar Ramirez MD in [place] 04/26/2019 10:37
== END ==
PROVIDERS: PCP Emergency Medicine; Visit Provider Orthopaedic Surgery
DX: S82.843A Displaced bimalleolar fracture of unspecified lower leg, initial encounter for closed fracture (principal); S93.06XA Dislocation of unspecified ankle joint, initial encounter
CPT/HCPCS: 73610

== ENCOUNTER 2019-04-26 10:42 | Outpatient (RCR) | payer OTHER, SELFPAY | END 2019-04-26 11:00 | disposition home or self-care (01) | LOC: PT 10:42 | PROVIDERS: Visit Provider Orthopaedic Surgery | DX: S82.841D Displaced bimalleolar fracture of right lower leg, subsequent encounter for closed fracture with routine healing (principal); S93.04XA Dislocation of right ankle joint, initial encounter ==

== ENCOUNTER 2019-04-28 10:50 | Outpatient (RCR) | payer OTHER, SELFPAY ==
--- NOTE | 2019-04-28 11:20 | HMH.PTOPWND ---
Rehab Outpt Wound Evaluation Rehab OP Wound Evaluation Start: 04/28/19 11:14 Freq: Status: Active Protocol: Document 04/28/19 11:14 SHERRILL (Rec: 04/28/19 11:20 PHOROWDY [id number]) Electronically Signed By Santiago Dixon, PT 04/28/19 11:14 Subjective/History History History Pt is 58 yowm who present with right LE edema ~ 2 wks S/P right ankle ORIF. He reports original injury occured ~ 1 mo ago when he stepped wrong going down a curb with the reulting fxs and ankle dislocation. He reports expected post-op edema and hematoma. He also c/o pain at all times in the ankle. He reports no unexpected numbness or tinling in the foot or ankle. Worst palpation tenderness is superior to the ankle itself. He has hx of HTN and chronic neck and LB pain. Subjective Subjective Currently he reports 7/10 pain in the right ankle. Lymphedema Eval Classification of Lymphedema Secondary Lymphedema Yes Post-Surgical Lymphedema Yes Post Traumatic Lymphedema Yes Stemmer's sign Stemmer's Sign no Stage of Lymphedema Lymphedema stages Stage I (Pitting edema, reduces w/ elevation, no fibrosis) Skin Changes Dry Skin Yes Pain Scale Pain Scale (0-10) 7 Affected Extremities Areas Affected by Lymphedema/Edema Right Lower Extremity Manual Lymphatic Drainage Treatment Area MLD Treatment Area Right Lower Extremity Wound Problems/Impairments Impairments Problems/Impairmments Palpation Tenderness,Impaired Range of Motion,Impaired Strength,Impaired Endurance, Impaired Gait Pattern,Impaired Walking,Impaired Standing, Impaired Recreational Activities,Increased Edema, Lymphedema Present,Wound Care Needs,Subjective C/O Pain, Impaired Self Care/Self Management Prognosis Rehab Potential Good Clinical Impression Consistent with Diagnosis Yes Short Term Goals Number of Weeks 4 Decreased Palpation Tenderness Yes: to m
== END 2019-04-28 10:55 | disposition home or self-care (01) ==
LOC: PT 10:50
PROVIDERS: Visit Provider Orthopaedic Surgery
DX: S82.851A Displaced trimalleolar fracture of right lower leg, initial encounter for closed fracture (principal); S93.06XA Dislocation of unspecified ankle joint, initial encounter
CPT/HCPCS: 97162

== ENCOUNTER → 2019-05-17 12:55 | Outpatient (CLI) | payer OTHER, SELFPAY ==
--- NOTE | 2019-05-17 12:58 | XR_ITS ---
PROCEDURE: XR ANKLE RT MIN 3V CLINICAL INDICATION: Ankle dislocation COMPARISON: XR ANKLE RT MIN 3V from 04/09/2019 XR ANKLE RT MIN 3V from 04/15/2019 XR ANKLE RT 2V from 04/15/2019 FINDINGS: Skin naye and splint device have been removed. Orthopedic hardware stable. Bone density, joint spaces and alignment are unchanged. IMPRESSION: No change. Dictated by: Jack Whitley 05/17/2019 14:43 Electronically signed by Jack Whitley in [place] 05/17/2019 14:43
== END ==
PROVIDERS: PCP Emergency Medicine; Visit Provider Orthopaedic Surgery
DX: S82.841D Displaced bimalleolar fracture of right lower leg, subsequent encounter for closed fracture with routine healing
CPT/HCPCS: 73610

== ENCOUNTER → 2019-06-18 12:31 | Outpatient (CLI) | payer OTHER, SELFPAY ==
--- NOTE | 2019-06-18 12:36 | XR_ITS ---
PROCEDURE: XR ANKLE RT MIN 3V CLINICAL INDICATION: Ankle Fu Follow-up fracture/ORIF COMPARISON: XR ANKLE RT MIN 3V from 04/15/2019 XR ANKLE RT 2V from 04/15/2019 XR ANKLE RT MIN 3V from 04/26/2019 XR ANKLE RT MIN 3V from 05/17/2019 FINDINGS: Good alignment of bony hardware previously placed at the distal tibia and fibula. Ankle mortise is preserved. Good alignment of the bony fragments. IMPRESSION: No change good alignment status post ORIF distal tib fib Dictated by: Akbar Ramirez MD 06/18/2019 14:13 Electronically signed by Akbar Ramirez MD in [place] 06/18/2019 14:13
== END ==
PROVIDERS: PCP Nurse Practitioner Family; Visit Provider Orthopaedic Surgery
DX: S82.851A Displaced trimalleolar fracture of right lower leg, initial encounter for closed fracture (principal)
CPT/HCPCS: 73610

== ENCOUNTER 2019-06-18 13:38 | Outpatient (RCR) | payer OTHER, SELFPAY | END 2019-06-18 14:00 | disposition home or self-care (01) | LOC: PT 13:38 | PROVIDERS: Visit Provider Orthopaedic Surgery | DX: S93.06XA Dislocation of unspecified ankle joint, initial encounter (principal) | CPT/HCPCS: 97760 ==

== ENCOUNTER → 2019-07-19 08:12 | Outpatient (CLI) | payer OTHER, SELFPAY ==
--- NOTE | 2019-07-19 08:16 | XR_ITS ---
PROCEDURE: XR ANKLE RT MIN 3V CLINICAL INDICATION: Ankle dislocation Follow-up ORIF fracture dislocation COMPARISON: XR ANKLE RT MIN 3V from 04/15/2019 XR ANKLE RT MIN 3V from 04/26/2019 XR ANKLE RT MIN 3V from 05/17/2019 XR ANKLE RT MIN 3V from 06/18/2019 FINDINGS: Status post ORIF distal tib fib as previously described with 80 lateral bone plate at the fibula 2 screws through the medial malleolus and 2 screws traversing both distal fibula into the tibia. There is good alignment with healing fractures noted. The ankle mortise is well preserved. IMPRESSION: Good alignment status post ORIF distal tib fib fractures Dictated by: Akbar Ramirez MD 07/19/2019 20:23 Electronically signed by Akbar Ramirez MD in [place] 07/19/2019 20:23
== END ==
PROVIDERS: PCP Emergency Medicine; Visit Provider Orthopaedic Surgery
DX: S82.843A Displaced bimalleolar fracture of unspecified lower leg, initial encounter for closed fracture (principal); S93.439A Sprain of tibiofibular ligament of unspecified ankle, initial encounter
CPT/HCPCS: 73610

== ENCOUNTER → 2019-09-30 13:25 | Outpatient (CLI) | payer OTHER, SELFPAY ==
[2019-09-30 13:39] LABS: Basophils % 0.6 % (0.1-2.0); Eosinophils # 0.2 K/mm3 (0.0-0.4); Hematocrit 50.8 % (42.0-52.0); Hemoglobin 16.9 g/dL (14.1-18.0); Lymphocytes # 1.7 K/mm3 (0.7-4.5); Lymphocytes % 23.2 % (10-50); Mean Corpuscular HGB Conc 33.3 g/dL (31.8-35.4); Mean Corpuscular Hemoglobin 30.4 pg (27.0-31.2); Mean Corpuscular Volume 91.4 fl (80-94); Mean Platelet Volume 8.4 fl (7.4-10.4); Monocytes # 0.5 K/mm3 (0.1-1.0); Monocytes % 6.9 % (1.7-9.3); Neutrophils # 4.9 K/mm3 (1.8-7.8); Neutrophils % 66.4 % (37.0-80.0); Platelet Count 246 K/mm3 (142-424); Red Blood Count 5.56 M/mm3 (4.60-6.20); Red Cell Distribution Width 13.8 % (11.5-17.5); White Blood Count 7.4 K/mm3 (4.8-10.8)
[2019-09-30 14:14] LABS: Alanine Aminotransferase 21 U/L (21-72); Albumin Level 3.8 g/dL (3.4-5.0); Albumin/Globulin Ratio 1.1 (1.1-1.8); Alkaline Phosphatase 92 U/L (46-116); Anion Gap 13.6 mEq/L (5-15); Aspartate Amino Transferase 16 U/L (15-37); Bilirubin,Total 0.5 mg/dL (0.2-1.0); Blood Urea Nitrogen 19 mg/dL (7-18); Calcium 9.2 mg/dL (8.5-10.1); Carbon Dioxide 28 mmol/L (21.0-32.0); Chloride 104 mmol/L (98-107); Cholesterol 210 mg/dL (140-200); Creatinine,Serum 1.06 mg/dL (0.70-1.30); Estimated Glomerular Filt Rate 72 ml/min (>60); GFR (African American) 87 ML/MIN (>60); Globulin 3.6 gm/dl (1.3-3.2); Glucose 92 mg/dL (74-106); HDL Cholesterol 42 mg/dL (27-67); LDL Cholesterol 144 mg/dL (0-130); Potassium 4.6 mmoL/L (3.5-5.1); Sodium 141 mmol/L (137-145); Thyroid Stimulating Hormone 2.92 uIU/ml (0.358-3.740); Total Protein,Serum 7.4 g/dL (6.4-8.2); Triglycerides 121 mg/dL (30-200); VLDL Cholesterol 24 mg/dL (0-40)
[2019-09-30 14:49] LABS: Hemoglobin A1C 5.4 % (0.0-7.0)
[2019-10-01 10:51] LABS: Vitamin D 25 Hydroxy 8.7 ng/mL (30.0-100.0)
== END ==
PROVIDERS: Visit Provider Nurse Practitioner Family
DX: E11.9 Type 2 diabetes mellitus without complications (principal); E55.9 Vitamin D deficiency, unspecified; Z79.899 Other long term (current) drug therapy
CPT/HCPCS: 80053; 80061; 82652; 83036; 84436; 84443; 85025

== ENCOUNTER → 2019-10-14 07:41 | Outpatient (CLI) | payer OTHER, SELFPAY | PROVIDERS: PCP Nurse Practitioner Family; Visit Provider Nurse Practitioner Family | DX: M79.601 Pain in right arm (principal) ==

== ENCOUNTER → 2020-05-26 10:39 | Outpatient (CLI) | payer OTHER, SELFPAY ==
[2020-05-30 15:38] LABS: Amphetamine/Metha Screen,Urine Negative ng/ml (<1000)
[2020-05-30 15:39] LABS: Barbiturates Screen,Urine Negative ng/ml (<200)
[2020-05-30 15:40] LABS: Benzodiazepines Screen,Urine Negative ng/ml (<200); Cannabinoid Screen,Urine Negative ng/ml (<50)
[2020-05-30 15:41] LABS: Cocaine Screen,Urine Negative ng/ml (<300); Methadone Screen,Urine Negative ng/ml (<300)
[2020-05-30 15:42] LABS: Opiate Screen,Urine Negative ng/ml (<300)
[2020-05-30 15:43] LABS: Phencyclidine Screen,Urine Negative ng/ml (<25)
== END ==
PROVIDERS: Visit Provider Nurse Practitioner Family
DX: M54.2 Cervicalgia (principal); Z79.899 Other long term (current) drug therapy
CPT/HCPCS: 80305

== ENCOUNTER → 2020-08-23 19:43 | Outpatient (CLI) | payer OTHER, SELFPAY ==
[2020-08-23 20:04] LABS: Basophils # 0.3 K/mm3 (0-0.2); Basophils % 3.4 % (0.1-2.0); Eosinophils # 0.2 K/mm3 (0.0-0.4); Eosinophils % 2.6 % (0.1-12.0); Hematocrit 51.6 % (42.0-52.0); Hemoglobin 17.8 g/dL (14.1-18.0); Lymphocytes # 1.7 K/mm3 (0.7-4.5); Lymphocytes % 20.4 % (10-50); Mean Corpuscular HGB Conc 34.4 g/dL (31.8-35.4); Mean Corpuscular Hemoglobin 31.2 pg (27.0-31.2); Mean Corpuscular Volume 90.8 fl (80-94); Mean Platelet Volume 12.9 fl (7.4-10.4); Monocytes # 0.8 K/mm3 (0.1-1.0); Monocytes % 9.4 % (1.7-9.3); Neutrophils # 5.2 K/mm3 (1.8-7.8); Neutrophils % 64.2 % (37.0-80.0); Platelet Count 189 K/mm3 (142-424); Red Blood Count 5.69 M/mm3 (4.60-6.20); White Blood Count 8.1 K/mm3 (4.8-10.8)
[2020-08-23 20:07] LABS: Alanine Aminotransferase 17 U/L (12-78); Albumin Level 4.4 g/dl (3.5-5.0); Albumin/Globulin Ratio 1.3 (1.1-1.8); Alkaline Phosphatase 107 U/L (38-126); Anion Gap 11.5 mEq/L (5-15); Aspartate Amino Transferase 24 U/L (17-59); Bilirubin,Total 0.6 mg/dl (0.2-1.3); Blood Urea Nitrogen 16 mg/dl (9-20); Calcium 9.7 mg/dl (8.4-10.2); Carbon Dioxide 33 mmol/L (22.0-30.0); Chloride 100 mmol/L (98-107); Chol/HDL Ratio 5.5 (1-3.5); Cholesterol 235 mg/dl (140-200); Estimated Glomerular Filt Rate 62 ml/min (>60); GFR (African American) 75 ML/MIN (>60); Globulin 3.4 g/dL (1.3-3.2); Glucose 96 mg/dl (74-100); HDL Cholesterol 43 mg/dl (40-60); Potassium 5.5 mmoL/L (3.5-5.1); Sodium 139 mmol/L (136-145); Total Protein,Serum 7.8 g/dl (6.3-8.2); Triglycerides 340 mg/dl (30-150); VLDL Cholesterol 68 mg/dL (0-40)
[2020-08-23 20:18] LABS: Direct LDL Cholesterol 150.74 mg/dL (100-129)
[2020-08-23 20:26] LABS: T4 (Thyroxine) 5.6 ug/dl (5.53-11.0)
[2020-08-23 20:39] LABS: Thyroid Stimulating Hormone 7.37 uIU/mL (0.465-4.68)
[2020-08-25 12:17] LABS: PSA, Free <0.02 ng/mL; Prostate Specific Ag <0.1 ng/mL (0.0-4.0)
== END ==
PROVIDERS: Visit Provider Nurse Practitioner Family
DX: Z00.00 Encounter for general adult medical examination without abnormal findings (principal); I10 Essential (primary) hypertension; E03.9 Hypothyroidism, unspecified; G62.9 Polyneuropathy, unspecified; F41.9 Anxiety disorder, unspecified; M54.5 Low back pain; M54.2 Cervicalgia; E55.9 Vitamin D deficiency, unspecified; Z12.5 Encounter for screening for malignant neoplasm of prostate
CPT/HCPCS: 80053; 80061; 84153; 84154; 84436; 84443; 85025

== ENCOUNTER → 2021-07-06 07:55 | Outpatient (CLI) | payer OTHER, SELFPAY ==
--- NOTE | 2021-07-06 07:55 | MR_ITS ---
PROCEDURE INFORMATION: Exam: MR Left Upper Extremity Joint Without Contrast; Shoulder Exam date and time: 07/06/2021 7:55 AM Age: 61 years old Clinical indication: Pain; Shoulder; Left; Additional info: Shoulder pain. Shoulder pain [id number]. No injury or trauma. Limited rom. Pain when raising arm. No prior. TECHNIQUE: Imaging protocol: MR of the Left upper extremity without contrast. Exam focused on the shoulder. COMPARISON: DX XR CHEST 2V 04/12/2019 12:30 PM FINDINGS: Bones and cartilage: Type 1 acromion with flat undersurface. No subacromial enthesophyte. No os acromiale. Joint spaces: No glenohumeral joint effusion. Glenoid labrum: See Infraspinatus tendon finding. Supraspinatus tendon: Unremarkable. No evidence of tear. Infraspinatus tendon: Moderate grade focal partial thickness tearing involving the articular and interstitial portions of the insertion of the infraspinatus tendon. No other significant rotator cuff tearing. No labral tearing. Subscapularis tendon: Unremarkable. No evidence of tear. Teres minor tendon: Unremarkable. No evidence of tear. Tendon of biceps brachii: Long of the biceps tendon is intact and normal in position. Glenohumeral ligaments: Unremarkable. Muscles: Moderate atrophy and fatty infiltration involving the teres minor muscle with no significant deltoid muscle atrophy or fatty infiltration. Soft tissues: See Infraspinatus tendon finding. IMPRESSION: 1. Moderate grade focal partial thickness tearing involving the articular and interstitial portions of the insertion of the infraspinatus tendon. 2. No other significant rotator cuff tearing or labral tearing. 3. Moderate atrophy and fatty infiltration involving the teres minor muscle with no significant deltoid muscle atrophy or fatty infiltration. Etiology and significance of the spine is not entirely clear.
== END ==
PROVIDERS: PCP Nurse Practitioner Family; Visit Provider Nurse Practitioner Family
DX: M25.512 Pain in left shoulder (principal)
CPT/HCPCS: 73221

== ENCOUNTER → 2021-07-23 14:41 | Outpatient (CLI) | payer OTHER, SELFPAY ==
[2021-07-23 20:36] LABS: Amphetamine/Metha Screen,Urine Negative ng/ml (<1000)
[2021-07-23 20:37] LABS: Barbiturates Screen,Urine Negative ng/ml (<200); Benzodiazepines Screen,Urine Negative ng/ml (<200)
[2021-07-23 20:38] LABS: Cannabinoid Screen,Urine Negative ng/ml (<50)
[2021-07-23 20:39] LABS: Cocaine Screen,Urine Negative ng/ml (<300); Methadone Screen,Urine Negative ng/ml (<300)
[2021-07-23 20:40] LABS: Opiate Screen,Urine Negative ng/ml (<300)
[2021-07-23 20:41] LABS: Phencyclidine Screen,Urine Negative ng/ml (<25)
== END ==
PROVIDERS: Visit Provider Nurse Practitioner Family
DX: J32.9 Chronic sinusitis, unspecified (principal); M54.9 Dorsalgia, unspecified
CPT/HCPCS: 80305

== ENCOUNTER → 2021-08-10 10:04 | Outpatient (CLI) | payer OTHER, SELFPAY | PROVIDERS: PCP Nurse Practitioner Family; Visit Provider Nurse Practitioner | DX: Z20.822 Contact with and (suspected) exposure to COVID-19 (principal) | CPT/HCPCS: C9803; U0003; U0005 ==

== ENCOUNTER 2022-02-21 08:37 | Emergency (ER) | payer OTHER, SELFPAY ==
[2022-02-21 08:47] VITALS: BP 163/79; PULSE 89; RESP 16; TEMP 36.6; O2SAT 97; BMI 33.9
[2022-02-21 08:53] VITALS: BP 157/90; PULSE 87; RESP 16; TEMP 36.9; O2SAT 97; BMI 33.9
--- NOTE | 2022-02-21 08:55 | XR_ITS ---
FINAL REPORT CLINICAL HISTORY: fall x 1 week ago, anterior left rib pain, near heart FINDINGS: 3 views of the left ribs were obtained. There is mild irregularity of the left 5th lateral rib that may represent a chronic fracture. There are no acute displaced rib fractures. There is no pleural fluid collection or pneumothorax. A single view of the chest demonstrates no acute cardiopulmonary process. IMPRESSION: Mild irregularity of the left 5th lateral rib may represent a chronic fracture. There are no acute displaced left rib fractures. No pneumothorax. Reviewed, Interpreted and Dictated by Jersey Ewing III, MD Transcribed by Eren Taylor Authenticated and [facility]
--- NOTE | 2022-02-21 09:19 | HMH.EDUTC ---
[facility] Disposition Clinical Impression: Contusion of rib on left side Qualifiers: Encounter type: initial encounter Qualified Code(s): S20.212A - Contusion of left front wall of thorax, initial encounter Disposition: Home, Self-Care Condition on Discharge: Good Instructions: How to Use an Incentive Spirometer, DI for Rib Contusion Additional Instructions: Go home and rest. No heavy lifting. Take the oral medications as directed. Use the incentive spirometer 10 every 2 hours while you are awake for the next few weeks. This will help to make sure you are deep breathing and help prevent pneumonia. Follow up with your regular doctor. GO TO THE ER FOR ANY WORSENING SYMPTOMS OR CONCERN, ESPECIALLY BOWEL OR BLADDER ISSUES, SADDLE AREA NUMBNESS, FEVER, ETC Prescriptions: Naproxen [Naproxen 500mg tab] 500 mg PO BIDP PRN #30 tab PRN Reason: Moderate Pain Transmission Status: Received by [facility] Referrals: Evan Osorio APRN [Primary Care Provider] - Time of Disposition: 09:44 Medical Decision Making - Medical Records Medical records reviewed: No: I reviewed the patient's medical records. - Raymond Inquiry Pt receiving controlled substance: No Vital Signs: 02/21/22 08:47 02/21/22 08:53 02/21/22 09:46 Temperature 97.9 F 98.4 F 98.4 F Temperature Source Oral Oral Pulse Rate 87 Pulse Rate [Left Radial] 89 87 Respiratory Rate 16 16 16 Blood Pressure 150/90 H Blood Pressure [Left Arm] 163/79 H 157/90 H Blood Pressure Mean [Left Arm] 107 112 Blood Pressure Source [Left Arm] Automatic Cuff Blood Pressure Position [Left Arm] Sitting 02 Sat by Pulse Oximetry 97 97 Oxygen Delivery Method Room Air [facility] HPI - General Stated complaint: AO 02/15 fall, rib pain Time Seen by Provider: 02/21/22 09:00 Description of Symptoms (Recalled from Triage Doc. by RN): patient comes in with complaints of rib pain. 1 week ago he tripped over a board on his deck and fell onto railing of the deck,. patient states he has pain in his shelbie of chest and ribs. HEENT Symptoms (Recalled from RN notes): No Resp Symptoms (Recalled from RN notes): No Skin Symptoms (Recalled from RN notes): No MS Symptoms (Recalled from RN notes): Yes Functional Status (Recalled from RN notes): wnl - History of Present Illness Provider Complaint: He states that he fell 1 week ago and came down on his chest. Since then he has had left sided rib pain with movement, coughing and deep breathing. He denies any shortness of breath. - Related Data Home Medications Medication Instructions Recorded Confirmed Gabapentin 800 mg PO TID 02/21/22 02/21/22 Loratadine [Allergy Relief] 10 mg PO DAILY 02/21/22 02/21/22 lisinopriL [Lisinopril] 5 mg PO DAILY 02/21/22 02/21/22 Previous Rx's Medication Instructions Recorded Naproxen [Naproxen 500mg tab] 500 mg PO BIDP PRN #30 tab 02/21/22 Allergies Allergy/AdvReac Type Severity Reaction Status Date / Time No Known Allergies Allergy Verified 02/21/22 09:02 - Worker's Comp Is this a Worker's Comp case?: No [facility] History - Hepatitis A Screen Attestation statement:: This patient has been screened for Hepatitis A risk factors. I have reviewed the patient's past medical history: Yes 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: Reports:: Anxiety, Cancer, Depression, Gastroesophageal Reflux Disease(GERD), Hypertension Denies:: Diabetes Mellitus Type 1, Diabetes Mellitus Type 2, Internal Pacemaker, MRSA, Seizures Other 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: Reports: Arthritis, Hypothyroidism, Thyroid Disease, Other. Denies: Blood Transfusion Reaction Comment: Neuropathy Other Surgeries: Yes: Colonoscopy, Hernia Repair, Other. No: Pacemaker Amputation: No Fractures: Yes Comment: right ankle, oral - Social History Smoking Status: Never smoker Alcohol Intake: current Alcohol Intake Frequency:: a few times a week Substance Use Type: denies use Occupational Status: disabled Housing: apartment Household
[2022-02-21 09:46] VITALS: BP 150/90; PULSE 87; RESP 16; TEMP 36.9
== END 2022-02-21 09:49 | disposition home or self-care (01) ==
PROVIDERS: Emergency Provider Nurse Practitioner Family; PCP Nurse Practitioner Family
DX: S20.212A Contusion of left front wall of thorax, initial encounter (principal); W01.198A Fall on same level from slipping, tripping and stumbling with subsequent striking against other object, initial encounter
CPT/HCPCS: 71101; 99212; G0463

== ENCOUNTER → 2022-07-05 14:12 | Outpatient (CLI) | payer OTHER, SELFPAY | PROVIDERS: PCP Nurse Practitioner Family; Visit Provider Nurse Practitioner Family | DX: G47.33 Obstructive sleep apnea (adult) (pediatric) (principal) | CPT/HCPCS: G0399 ==

== ENCOUNTER → 2022-09-11 10:00 | Outpatient (CLI) | payer OTHER, SELFPAY ==
[2022-09-11 16:03] LABS: Alanine Aminotransferase 20 U/L (12-78); Albumin Level 4.3 g/dl (3.5-5.0); Albumin/Globulin Ratio 1.5 (1.1-1.8); Alkaline Phosphatase 86 U/L (38-126); Anion Gap 12.5 mEq/L (5-15); Aspartate Amino Transferase 26 U/L (17-59); Bilirubin,Total 0.5 mg/dl (0.2-1.3); Blood Urea Nitrogen 14 mg/dl (9-20); Calcium 8.8 mg/dl (8.4-10.2); Carbon Dioxide 24 mmol/L (22.0-30.0); Chloride 108 mmol/L (98-107); Chol/HDL Ratio 4.5 (1-3.5); Cholesterol 198 mg/dl (140-200); Estimated Glomerular Filt Rate 76 ml/min (>60); GFR (African American) 92 ML/MIN (>60); Globulin 2.8 g/dL (1.3-3.2); Glucose 91 mg/dl (74-100); HDL Cholesterol 44 mg/dl (40-60); Potassium 4.5 mmoL/L (3.5-5.1); Sodium 140 mmol/L (136-145); Total Protein,Serum 7.1 g/dl (6.3-8.2); Triglycerides 139 mg/dl (30-150); VLDL Cholesterol 28 mg/dL (0-40)
[2022-09-11 16:14] LABS: Direct LDL Cholesterol 123.26 mg/dL (100-129)
[2022-09-11 16:23] LABS: 25-OH Vitamin D, Total 14.3 ng/mL (30-100)
[2022-09-11 16:33] LABS: Amphetamine/Metha Screen,Urine Negative ng/ml (<1000); Barbiturates Screen,Urine Negative ng/ml (<200)
[2022-09-11 16:34] LABS: Benzodiazepines Screen,Urine Negative ng/ml (<200)
[2022-09-11 16:35] LABS: Cannabinoid Screen,Urine Negative ng/ml (<50); Cocaine Screen,Urine Negative ng/ml (<300)
[2022-09-11 16:36] LABS: Methadone Screen,Urine Negative ng/ml (<300); Opiate Screen,Urine Negative ng/ml (<300); Prostate Specific Ag Screen 1.8 ng/ml (0.0-4.0); Thyroid Stimulating Hormone 5.42 uIU/mL (0.465-4.68)
[2022-09-11 16:37] LABS: Phencyclidine Screen,Urine Negative ng/ml (<25)
[2022-09-11 17:09] LABS: Basophils # 0.1 K/mm3 (0-0.2); Basophils % 1.1 % (0.1-2.0); Eosinophils # 0.2 K/mm3 (0.0-0.4); Eosinophils % 2.7 % (0.1-12.0); Hematocrit 47.5 % (42.0-52.0); Hemoglobin 16.3 g/dL (14.1-18.0); Lymphocytes # 1.9 K/mm3 (0.7-4.5); Lymphocytes % 30.7 % (10-50); Mean Corpuscular HGB Conc 34.2 g/dL (31.8-35.4); Mean Corpuscular Hemoglobin 31.2 pg (27.0-31.2); Mean Corpuscular Volume 91.3 fl (80-94); Mean Platelet Volume 9.1 fl (7.4-10.4); Monocytes # 0.4 K/mm3 (0.1-1.0); Monocytes % 5.9 % (1.7-9.3); Neutrophils # 3.7 K/mm3 (1.8-7.8); Neutrophils % 59.6 % (37.0-80.0); Platelet Count 244 K/mm3 (142-424); Red Blood Count 5.21 M/mm3 (4.60-6.20); Red Cell Distribution Width 13.9 % (11.5-17.5); White Blood Count 6.2 K/mm3 (4.8-10.8)
== END ==
PROVIDERS: PCP Nurse Practitioner Family; Visit Provider Nurse Practitioner Family
DX: Z79.899 Other long term (current) drug therapy (principal); I10 Essential (primary) hypertension; R53.83 Other fatigue; Z12.5 Encounter for screening for malignant neoplasm of prostate
CPT/HCPCS: 80053; 80061; 80305; 82306; 84443; 85025; G0103

== ENCOUNTER 2023-01-26 09:39 | Emergency (ER) | payer OTHER, SELFPAY ==
[2023-01-26 09:45] VITALS: BP 121/86; PULSE 81; RESP 18; TEMP 36.7; O2SAT 98; BMI 36.3
[2023-01-26 10:05] VITALS: BP 121/86; PULSE 81; RESP 18; TEMP 36.7; O2SAT 98
--- NOTE | 2023-01-26 10:14 | EXP.UTC ---
Discharge Plan Disposition Patient Disposition: Home, Self-Care Condition: Good Prescriptions Prescriptions: New amoxicillin [amoxicillin] 500 mg tablet 500 mg PO BID 10 Days Qty: 20 0RF No Action gabapentin 800 mg tablet 800 mg PO TID Qty: 100 2RF Rx Instructions: may take a extra tab prn if needed. lisinopril 5 mg tablet See Rx Instructions .ROUTE .COMPLEX Qty: 90 2RF Dose Instruction: TAKE ONE TABLET BY MOUTH ONCE A DAY FOR HIGH BLOOD PRESSURE Rx Instructions: TAKE ONE TABLET BY MOUTH ONCE A DAY FOR HIGH BLOOD PRESSURE quetiapine 25 mg tablet See Rx Instructions .ROUTE .COMPLEX Qty: 90 2RF Dose Instruction: TAKE ONE TABLET BY MOUTH AT BEDTIME Rx Instructions: TAKE ONE TABLET BY MOUTH AT BEDTIME cholecalciferol (vitamin D3) 50 mcg (2,000 unit) capsule 50 mcg PO DAILY PRN (Reason: Low Vit D) Qty: 30 4RF cholecalciferol (vitamin D3) 1,250 mcg (50,000 unit) tablet 1,250 mcg PO WEEKLY Qty: 7 2RF Referrals Follow up/Referrals: Evan Osorio APRN [Primary Care Provider] - See instructions Activity Restrictions/Add. Instructions Additional Instructions/Restrictions: start antibiotics tomorrow follow up with dentist tomorrow monitor for fever if symptoms worsen return Clinical Impressions Clinical Impression: Dental abscess Instructions Patient Instructions: Tooth Abscess Discharge ED Provider: Sarah ([facility])Larry [facility] General Stated complaint: Facial inflammation, possible tooth abcess Mode of Arrival: Ambulatory Source of Information: Patient Limitations: No Limitations Time Seen by Provider: 01/26/23 10:05 Description of Symptoms (Recalled from Triage Doc. by RN): PATIENT C/O TOOTH INFECTION/ABSCESS THAT STARTED LAST NIGHT HEENT Symptoms (Recalled from RN notes): Yes Resp Symptoms (Recalled from RN notes): No Skin Symptoms (Recalled from RN notes): No MS Symptoms (Recalled from RN notes): No Functional Status (Recalled from RN notes): WNL History of Present Illness Provider Complaint: 62 yr old male presents for dental pain/abscess. pt states tooth has been broken for awhile but yesterday the pain started and woke up this am with his face swollen Related Data Previous Rx's Medication Instructions Recorded cholecalciferol (vitamin D3) 1,250 1,250 mcg PO WEEKLY #7 tabs 01/15/23 mcg (50,000 unit) tablet cholecalciferol (vitamin D3) 50 50 mcg PO DAILY PRN Low Vit D #30 01/15/23 mcg (2,000 unit) capsule caps gabapentin 800 mg tablet 800 mg PO TID Arthritis #100 tabs 01/15/23 lisinopril 5 mg tablet See Rx Instructions .Route 01/15/23 .COMPLEX #90 tabs quetiapine 25 mg tablet See Rx Instructions .Route 01/15/23 .COMPLEX #90 tabs amoxicillin 500 mg tablet 500 mg PO BID 10 days #20 tabs 01/26/23 Allergies Allergy/AdvReac Type Severity Reaction Status Date / Time No Known Allergies Allergy Verified 01/15/23 10:28 Worker's Comp Is this a Worker's Comp case?: No [facility] Disclaimer: The information contained in this section may have been updated after the patient was seen, as this information can be updated by other users. 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
== END 2023-01-26 10:24 | disposition home or self-care (01) ==
PROVIDERS: Emergency Provider Nurse Practitioner Family; PCP Nurse Practitioner Family
DX: R22.0 Localized swelling, mass and lump, head (principal); K04.7 Periapical abscess without sinus; I10 Essential (primary) hypertension
CPT/HCPCS: 96372; 99212; 99214; G0463; J0696

== ENCOUNTER → 2023-04-09 23:24 | Outpatient (CLI) | payer OTHER, SELFPAY ==
[2023-04-09 22:45] LABS: Amphetamine/Metha Screen,Urine Negative ng/ml (<1000); Barbiturates Screen,Urine Negative ng/ml (<200)
[2023-04-09 22:46] LABS: Benzodiazepines Screen,Urine Negative ng/ml (<200)
[2023-04-10 04:32] LABS: Cannabinoid Screen,Urine Negative ng/ml (<50); Cocaine Screen,Urine Negative ng/ml (<300)
[2023-04-10 04:33] LABS: Methadone Screen,Urine Negative ng/ml (<300)
[2023-04-10 04:34] LABS: Opiate Screen,Urine Negative ng/ml (<300); Phencyclidine Screen,Urine Negative ng/ml (<25)
== END ==
PROVIDERS: PCP Nurse Practitioner Family; Visit Provider Nurse Practitioner Family
DX: Z79.899 Other long term (current) drug therapy (principal)
CPT/HCPCS: 80305

== ENCOUNTER 2023-10-02 12:54 | Outpatient (CLI) | payer OTHER, SELFPAY ==
[2023-10-02 13:53] LABS: Basophils % 0.5 % (0.1-2.0); Eosinophils # 0.4 K/mm3 (0.0-0.4); Eosinophils % 4.4 % (0.1-12.0); Hematocrit 48.2 % (42.0-52.0); Hemoglobin 16.5 g/dL (14.1-18.0); Lymphocytes # 2.2 K/mm3 (0.7-4.5); Lymphocytes % 26.6 % (10-50); Mean Corpuscular HGB Conc 34.3 g/dL (31.8-35.4); Mean Corpuscular Hemoglobin 32.2 pg (27.0-31.2); Mean Corpuscular Volume 93.7 fl (80-94); Mean Platelet Volume 8.8 fl (7.4-10.4); Monocytes # 0.6 K/mm3 (0.1-1.0); Monocytes % 7.8 % (1.7-9.3); Neutrophils # 4.9 K/mm3 (1.8-7.8); Neutrophils % 60.8 % (37.0-80.0); Platelet Count 201 K/mm3 (142-424); Red Blood Count 5.14 M/mm3 (4.60-6.20); Red Cell Distribution Width 13.6 % (11.5-17.5); White Blood Count 8.1 K/mm3 (4.8-10.8)
[2023-10-02 14:17] LABS: Alanine Aminotransferase 24 U/L (12-78); Albumin/Globulin Ratio 1.4 (1.1-1.8); Alkaline Phosphatase 108 U/L (38-126); Anion Gap 9.8 mEq/L (5-15); Aspartate Amino Transferase 30 U/L (17-59); Bilirubin,Total 0.6 mg/dl (0.2-1.3); Blood Urea Nitrogen 18 mg/dl (9-20); Calcium 9.3 mg/dl (8.4-10.2); Carbon Dioxide 27 mmol/L (22.0-30.0); Chloride 107 mmol/L (98-107); Chol/HDL Ratio 5.5 (1-3.5); Cholesterol 219 mg/dl (140-200); Estimated Glomerular Filt Rate 76 ml/min (>60); GFR (African American) 92 ML/MIN (>60); Globulin 2.9 g/dL (1.3-3.2); Glucose 99 mg/dl (74-100); HDL Cholesterol 40 mg/dl (40-60); Potassium 4.8 mmoL/L (3.5-5.1); Sodium 139 mmol/L (136-145); Total Protein,Serum 6.9 g/dl (6.3-8.2); Triglycerides 140 mg/dl (30-150); VLDL Cholesterol 28 mg/dL (0-40)
[2023-10-02 14:28] LABS: Direct LDL Cholesterol 139.57 mg/dL (100-129)
[2023-10-02 14:34] LABS: 25-OH Vitamin D, Total 18.6 ng/mL (30-100)
[2023-10-02 14:49] LABS: Prostate Specific Ag Screen 1.5 ng/ml (0.0-4.0); Thyroid Stimulating Hormone 4.06 uIU/mL (0.465-4.68)
== END 2023-10-02 23:59 ==
LOC: LAB.DROPOF 12:54
PROVIDERS: PCP Nurse Practitioner Family; Visit Provider Nurse Practitioner Family
DX: E55.9 Vitamin D deficiency, unspecified (principal); Z68.39 Body mass index [BMI] 39.0-39.9, adult
CPT/HCPCS: 80053; 80061; 82306; 84443; 85025; G0103

== ENCOUNTER 2024-06-26 16:10 | Emergency (ER) | payer OTHER, SELFPAY ==
[2024-06-26 16:17] VITALS: BP 131/76; PULSE 101; RESP 18; TEMP 36.6; O2SAT 99; BMI 28.5
--- NOTE | 2024-06-26 16:19 | CT_ITS ---
PROCEDURE INFORMATION: Exam: CT Head Without Contrast Exam date and time: 06/26/2024 4:43 PM Age: 64 years old Clinical indication: Injury or trauma; Fall; Blunt trauma (contusions or hematomas) TECHNIQUE: Imaging protocol: Computed tomography of the head without contrast. Radiation optimization: All CT scans at this facility use at least one of these dose optimization techniques: automated exposure control; mA and/or kV adjustment per patient size (includes targeted exams where dose is matched to clinical indication); or iterative reconstruction. COMPARISON: No relevant prior studies available. FINDINGS: Brain: No acute intracranial hemorrhage.. There is mild diffuse heterogeneity of the white matter attenuation, consistent with chronic white matter ischemic changes. Mild cerebral atrophy. Remote lacunar infarctions in the left basal ganglia Cerebral ventricles: No ventriculomegaly. Paranasal sinuses: Visualized sinuses are unremarkable. No fluid levels. Mastoid air cells: Visualized mastoid air cells are well aerated. Bones: Unremarkable. No acute fracture. Soft tissues: Unremarkable. IMPRESSION: No acute intracranial hemorrhage..
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
[2024-06-26 17:39] VITALS: BP 136/89; PULSE 91; RESP 20; TEMP 36.7; O2SAT 96
== END 2024-06-26 17:40 | disposition home or self-care (01) ==
PROVIDERS: Emergency Provider Emergency Medicine; PCP Nurse Practitioner Family
DX: S00.91XA Abrasion of unspecified part of head, initial encounter (principal); R51.9 Headache, unspecified; N48.89 Other specified disorders of penis; Y04.0XXA Assault by unarmed brawl or fight, initial encounter
CPT/HCPCS: 70450; 99284

== ENCOUNTER 2024-07-12 15:43 | Outpatient (CLI) | payer OTHER, SELFPAY ==
[2024-07-12 18:20] LABS: Basophils # 0.1 K/mm3 (0-0.2); Basophils % 0.7 % (0.1-2.0); Eosinophils # 0.3 K/mm3 (0.0-0.4); Eosinophils % 2.5 % (0.1-12.0); Hematocrit 48.8 % (42.0-52.0); Lymphocytes # 1.7 K/mm3 (0.7-4.5); Lymphocytes % 17.7 % (10-50); Mean Corpuscular HGB Conc 34.8 g/dL (31.8-35.4); Mean Corpuscular Hemoglobin 32.8 pg (27.0-31.2); Mean Corpuscular Volume 94.2 fl (80-94); Mean Platelet Volume 7.8 fl (7.4-10.4); Monocytes # 0.7 K/mm3 (0.1-1.0); Monocytes % 7.5 % (1.7-9.3); Neutrophils # 6.9 K/mm3 (1.8-7.8); Neutrophils % 71.5 % (37.0-80.0); Platelet Count 215 K/mm3 (142-424); Red Blood Count 5.18 M/mm3 (4.60-6.20); Red Cell Distribution Width 13.7 % (11.5-17.5); White Blood Count 9.7 K/mm3 (4.8-10.8)
[2024-07-12 18:58] LABS: Alanine Aminotransferase 19 U/L (12-78); Albumin Level 4.1 g/dl (3.5-5.0); Albumin/Globulin Ratio 1.6 (1.1-1.8); Alkaline Phosphatase 102 U/L (38-126); Anion Gap 9.4 mEq/L (5-15); Aspartate Amino Transferase 29 U/L (17-59); Bilirubin,Total 0.7 mg/dl (0.2-1.3); Blood Urea Nitrogen 20 mg/dl (9-20); Calcium 9.4 mg/dl (8.4-10.2); Carbon Dioxide 28 mmol/L (22.0-30.0); Chloride 104 mmol/L (98-107); Chol/HDL Ratio 3.4 (1-3.5); Cholesterol 165 mg/dl (140-200); Estimated Glomerular Filt Rate 76 ml/min (>60); GFR (African American) 92 ML/MIN (>60); Globulin 2.6 g/dL (1.3-3.2); Glucose 95 mg/dl (74-100); HDL Cholesterol 49 mg/dl (40-60); Potassium 4.4 mmoL/L (3.5-5.1); Sodium 137 mmol/L (136-145); Total Protein,Serum 6.7 g/dl (6.3-8.2); Triglycerides 225 mg/dl (30-150); VLDL Cholesterol 45 mg/dL (0-40)
[2024-07-12 19:09] LABS: Direct LDL Cholesterol 94.39 mg/dL (100-129)
[2024-07-12 19:14] LABS: 25-OH Vitamin D, Total 32.3 ng/mL (30-100)
[2024-07-12 19:28] LABS: Thyroid Stimulating Hormone 7.03 uIU/mL (0.465-4.68)
[2024-07-13 09:43] LABS: Hemoglobin A1C 5.3 % (4.0-6.0)
== END 2024-07-12 23:59 | disposition home or self-care (01) ==
LOC: LAB.DROPOF 07-13 08:51
PROVIDERS: PCP Nurse Practitioner Family; Visit Provider Family Medicine
DX: R06.83 Snoring (principal); R40.0 Somnolence; R53.83 Other fatigue; G47.33 Obstructive sleep apnea (adult) (pediatric); E55.9 Vitamin D deficiency, unspecified; Z00.00 Encounter for general adult medical examination without abnormal findings
CPT/HCPCS: 80050; 80053; 80061; 82306; 83036; 84443; 85025

== ENCOUNTER 2024-08-01 12:03 | Emergency (ER) | payer OTHER, SELFPAY ==
[2024-08-01 13:21] VITALS: BP 141/75; PULSE 91; RESP 18; TEMP 36.6; O2SAT 96; BMI 37.9
--- NOTE | 2024-08-01 13:22 | ED_ITS ---
Discharge Plan Disposition Patient Disposition: Home, Self-Care Condition: Good Prescriptions Prescriptions: New methylprednisolone 4 mg Tablets,Dose Pack 4 mg PO DIRECTED 6 Days Qty: 21 0RF Rx Instructions: Take 1 pack as directed for 6 days No Action quetiapine 25 mg tablet See Rx Instructions .ROUTE .COMPLEX Qty: 90 2RF Dose Instruction: TAKE ONE TABLET BY MOUTH AT BEDTIME Rx Instructions: TAKE ONE TABLET BY MOUTH AT BEDTIME cetirizine [Wal-Zyr (cetirizine)] 10 mg tablet 10 mg PO DAILY Qty: 30 3RF gabapentin 800 mg tablet 800 mg PO TID Qty: 90 3RF fluticasone propionate [Flonase Allergy Relief] 50 mcg/actuation spray,suspension 1 spray intranasal DAILY Qty: 16 2RF Rx Instructions: administer into each nostril buspirone 10 mg tablet 10 mg PO BID Qty: 60 2RF hydroxyzine pamoate [Vistaril] 25 mg capsule 25 mg PO BID PRN (Reason: anxiety) Qty: 60 0RF levothyroxine 25 mcg tablet 25 mcg PO DAILY Qty: 30 2RF ergocalciferol (vitamin D2) 1,250 mcg (50,000 unit) capsule See Rx Instructions .ROUTE .COMPLEX Qty: 4 0RF Dose Instruction: TAKE 1 CAPSULE BY MOUTH ONCE WEEKLY Rx Instructions: TAKE 1 CAPSULE BY MOUTH ONCE WEEKLY atorvastatin 20 mg tablet See Rx Instructions .ROUTE .COMPLEX Qty: 30 3RF Dose Instruction: TAKE ONE TABLET BY MOUTH ONCE A DAY Rx Instructions: TAKE ONE TABLET BY MOUTH ONCE A DAY cholecalciferol (vitamin D3) 50 mcg (2,000 unit) tablet See Rx Instructions .ROUTE .COMPLEX Qty: 30 1RF Dose Instruction: TAKE ONE TABLET BY MOUTH ONCE A DAY NEEDED FOR LOW VITAMIN D Rx Instructions: TAKE ONE TABLET BY MOUTH ONCE A DAY NEEDED FOR LOW VITAMIN D lisinopril 5 mg tablet See Rx Instructions .ROUTE .COMPLEX Qty: 90 0RF Dose Instruction: TAKE ONE TABLET BY MOUTH ONCE A DAY FOR HIGH BLOOD PRESSURE Rx Instructions: TAKE ONE TABLET BY MOUTH ONCE A DAY FOR HIGH BLOOD PRESSURE Referrals Follow up/Referrals: Evan Osorio APRN [Primary Care Provider] - See instructions Activity Restrictions/Add. Instructions Additional Instructions/Restrictions: Go home and rest. It would be best if you rested tomorrow too. Don't start the oral steroids (medrol dose pack) until tomorrow, since you had the shots in here today. Follow up with your regular doctor. GO TO THE ER FOR ANY WORSENING SYMPTOMS OR CONCERN, ESPECIALLY BOWEL OR BLADDER ISSUES, SADDLE AREA NUMBNESS, FEVER, ETC Clinical Impressions Clinical Impression: Gouty arthritis of left great toe Instructions Patient Instructions: DI for Gout, Methylprednisolone, Ketorolac Injection, Dexamethasone Injection Print Language Print Language: Lithuanian Discharge ED Provider: Malachi Coffey [facility] [place] HPI General Stated complaint: gout in left toe Time Seen by Provider: 08/01/24 13:22 Related Data Previous Rx's ?Medication ?Instructions ?Recorded ergocalciferol (vitamin D2) 1,250 See Rx Instructions .Route 06/05/23 mcg (50,000 unit) capsule .COMPLEX #4 caps quetiapine 25 mg tablet See Rx Instructions .Route 10/02/23 .COMPLEX #90 tabs cetirizine 10 mg tablet (Wal-Zyr 10 mg PO DAILY #30 tabs 04/22/24 (cetirizine)) fluticasone propionate 50 1 spray intranasal DAILY #16 grams 04/22/24 mcg/actuation nasal spray,suspension (Flonase Allergy Relief) gabapentin 800 mg tablet 800 mg PO TID Arthritis #90 tabs 04/22/24 atorvastatin 20 mg tablet See Rx Instructions .Route 05/20/24 .COMPLEX #30 tabs cholecalciferol (vitamin D3) 50 See Rx Instructions .Route 06/18/24 mcg (2,000 unit) tablet .COMPLEX #30 tabs buspirone 10 mg tablet 10 mg PO BID #60 tabs 07/12/24 hydroxyzine pamoate 25 mg capsule 25 mg PO BID PRN anxiety #60 caps 07/12/24 (Vistaril) levothyroxine 25 mcg tablet 25 mcg PO DAILY #30 tabs 07/13/24 lisinopril 5 mg tablet See Rx Instructions .Route 07/19/24 .COMPLEX #90 tabs methylprednisolone 4 mg tablets in 4 mg PO DIRECTED 6 days #21 tabs 08/01/24 a dose pack Allergies Allergy/AdvReac Type Severity Reaction Status Date / Time No Known Allergies Allergy Verified 07/12/24 14:48 [facility] Disclaimer: The information contained in this section may have been updated after the patient was seen, as this information can be updated by other users. 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 (Updated 08/01/24 @ 14:10 by Malachi Coffey APRN) Neoplasm of uncertain behavior of skin Ankle dislocation Trimalleolar fracture of ankle, closed Torn muscle Acute maxillary sinusitis Contusion of rib on left side Dental abscess Screening due Abrasion head Hyperlipidemia Hypertension Neuropathy Neck pain Back pain Social History (Updated 07/13/24 @ 08:49 by Lena Galvez APRN) Smoking Status: Current every day smoker second hand exposure: No alcohol intake: current alcohol intake frequency: a few times a week substance use type: denies use current occupational status: disabled Travel in the last 8 weeks: None household members: none housing: apartment current occupational exposures/hazards: No caffeine: Yes Have you lived/traveled outside US in past 30 days?: No Contact w/someone who lives/traveled outside US past 30 days?: No Exposure to someone with infectious disease in past 14 days?: No Do you have a fever (greater than 100.4 F or 38 C)?: No Have you tested positive for COVID-19: No Exposed to someone with COVID-19 in past 14 days?: No Do you have a sore throat?: No Do you have a cough?: No Do you have any weakness?: No Do you have any diarrhea?: No Are you experiencing any unusual bleeding?: No Do you have any muscle aches/pain?: No Do you have any abdominal pain?: No Are you experiencing loss of taste or smell?: No ROS Obtained: Yes All systems reviewed & no additional complaints except as documented Constitutional Constitutional: Denies chills and Denies fever(s) Eyes Eyes: Denies eye discharge ENT Ears, Nose, Mouth, and Throat: Denies dizziness, Denies otalgia and Denies sore throat Cardiovascular Cardiovascular: Denies chest pain Respiratory Respiratory: Denies shortness of breath, Denies chest congestion, Denies cough, Denies stridor and Denies wheezing Gastrointestinal Gastrointestingal: Denies nausea or vomiting Musculoskeletal Musculoskeletal: Reports system reviewed and no additional complaints, except as documented and Denies arthralgias Integumentary/Breasts Skin/Breast: Denies rash Neurologic Neurologic: Denies dizziness and Denies paresthesias Allergic/Immunologic Allergic/Immunologic: Denies wheezing Physical Exam General General appearance: alert and in no apparent distress Head Head exam: atraumatic, normocephalic and normal inspection Eye Eye exam: Present normal appearance, PERRL and EOMI ENT ENT exam: Present normal exam, normal oropharynx, mucous membranes moist, TM's normal bilaterally and normal external ear exam Neck Neck exam: Present normal inspection, full ROM and trachea midline; Absent meningismus or lymphadenopathy Chest Chest inspection: Present normal inspection and symmetric chest wall rise; Absent tenderness Respiratory Respiratory exam: Present normal lung sounds bilaterally; Absent respiratory distress Cardiovascular Cardiovascular exam: Present regular rate and normal rhythm; Absent JVD Abdominal Exam Abdominal exam: Present soft and normal bowel sounds; Absent distention, tenderness or guarding Extremities Exam Extremities exam: Present normal inspection, full ROM and normal capillary refill; Absent calf tenderness Back Exam Back exam: Present normal inspection; Absent tenderness Neurological Exam Neurological exam: Present alert and oriented X3 Psychiatric Psychiatric exam: Present normal affect and normal mood Skin Skin exam: Present warm, dry, intact and normal color Lymphatic Lymphatic Findings: no adenopathy Medical Decision Making Medical Records Medical records reviewed: No I reviewed the patient's medical records. Screening: Per USPSTF and CDC recommendations, given the prevalence of disease in our region, it is our hospital?s policy to screen for HIV and viral Hepatitis for all patients aged 18 and over and those with ongoing risk factors. Raymond Inquiry Pt receiving controlled substance: No
[2024-08-01] MEDS: DEXAMETHASONE 4MG/ML 1ML VIAL 8 MG IM (13:58)
[2024-08-01] MEDS: KETOROLAC 60MG/2ML VIAL 60 MG IM (13:58)
[2024-08-01 14:17] VITALS: BP 141/75; PULSE 91; RESP 18; TEMP 36.6
== END 2024-08-01 14:18 | disposition home or self-care (01) ==
PROVIDERS: Emergency Provider Nurse Practitioner Family; PCP Nurse Practitioner Family
DX: M10.9 Gout, unspecified (principal)
CPT/HCPCS: 96372; 99213; G0381; J1100; J1885

== ENCOUNTER 2024-11-23 13:41 | Outpatient (CLI) | payer OTHER, SELFPAY ==
--- NOTE | 2024-11-23 | CA_ITS ---
APPROVED REPORT EXAM: Comprehensive 2D, Doppler, and color-flow Echocardiogram Retail Cashier Associate: Katelynn Acosta CRT Ht: 5 ft 6 in Wt: 251lbs BSA: 2.20 BP: 138/78 mmHg Indications: Chest Pain, Shortness of Breath, Hyperlipidemia, Hypertension/HDD 2D Dimensions LA Volume 62.10 mL LA Volume Index 27.50 mL/m2 (M/F) 16-34 M-Mode Dimensions RVDd 2.84 cm (0.9-2.6) LA Diam 4.02 cm (1.9-4.0) LVDd 4.63 cm (3.5-5.7) LVDs 2.82 cm (3.5-5.7) IVSd 1.31 cm (0.6-1.1) PWd 1.14 cm (0.6-1.1) EF (Teich) 69.50% FS 39.10% EDV (Teich) 98.80 mL TAPSE 2.22 (<1.7) ESV (Teich) 30.10 mL LV Diastology E Decel Time 160 (160-240 msec) E/A Ratio 0.79 MED A' 12.10 cm/s LAT A' 16.20 cm/s Aortic Valve DEISY Index 1.10 cm2/m2 AoV Peak Gigi. 153.0 (50-130 cm/s) AO Peak GR. 9.40 mmHg AO Mean GR. 5.10 (<5 mmHg) AO VTI 31.3 (18-25 cm) DEISY (VTI) 2.49 (2.5-4.5 cm2) Mitral Valve MV E Max Gigi. 60.0 (40-130 cm/s) MV A Velocity 76.0 (40-130 cm/s) E/A Ratio 0.79 MV PHT 47.0 ms Pulmonary Valve PV Peak Velocity 163.0 (50-150 cm/s) Tricuspid Valve TR P. Velocity 191.00 cm/s RAP Estimate 10.00 mmHg RVSP 24.50 mmHg Left Ventricle The left ventricle is normal size. The left ventricular systolic function is normal. The left ventricular ejection fraction is within the normal range. There is increased LV wall thickness. There is normal LV segmental wall motion. The left ventricular diastolic function is normal. LVEF is 55%. Right Ventricle The right ventricle is mildly dilated. The right ventricular systolic function is normal. Atria Left atrium is mildly dilated. Right atrium is mildly dilated. There is no Doppler evidence of interatrial shunt. Aortic Valve Aortic valve opens well. There is no aortic valvular stenosis. No aortic regurgitation is present. Mitral Valve The mitral valve is normal in structure. No evidence of mitral valve stenosis. Trace mitral regurgitation. Tricuspid Valve Tricuspid valve is grossly normal in structure and function. Trace tricuspid regurgitation. There is insufficient TR jet to estimate RVSP. Pulmonic Valve The pulmonary valve is normal in structure. Mild pulmonic regurgitation. Great Vessels The aortic root is normal in size. IVC is normal in size and collapses >50% with inspiration. Pericardium There is no pericardial effusion. Other Information Study Quality: Fair Conclusion Normal biventricular systolic function. Mild RV dilation. Mild LA dilation. Mild PI. Electronically signed by : Tamara Vargas MD 11/24/2024 00:21:11
== END 2024-11-23 23:59 | disposition home or self-care (01) ==
LOC: RT 13:41
PROVIDERS: PCP Nurse Practitioner Family; Visit Provider Nurse Practitioner Family
DX: I51.7 Cardiomegaly (principal); I37.1 Nonrheumatic pulmonary valve insufficiency; R07.89 Other chest pain; R06.02 Shortness of breath
CPT/HCPCS: 93306

== ENCOUNTER 2024-11-24 13:58 | Outpatient (CLI) | payer OTHER, SELFPAY ==
[2024-11-24 14:47] LABS: Basophils % 0.5 % (0.1-2.0); Eosinophils # 0.2 K/mm3 (0.0-0.4); Eosinophils % 2.9 % (0.1-12.0); Hematocrit 44.7 % (42.0-52.0); Hemoglobin 15.1 g/dL (14.1-18.0); Lymphocytes # 1.2 K/mm3 (0.7-4.5); Lymphocytes % 16.3 % (10-50); Mean Corpuscular HGB Conc 33.8 g/dL (31.8-35.4); Mean Corpuscular Hemoglobin 30.1 pg (27.0-31.2); Mean Corpuscular Volume 89.2 fl (80-94); Mean Platelet Volume 9.3 fl (7.4-10.4); Monocytes # 0.8 K/mm3 (0.1-1.0); Monocytes % 11.1 % (1.7-9.3); Neutrophils # 5.2 K/mm3 (1.8-7.8); Neutrophils % 68.7 % (37.0-80.0); Nucleated Red Blood Cells # 0 10^3/uL; Nucleated Red Blood Cells % 0 %; Platelet Count 226 K/mm3 (142-424); Red Blood Count 5.01 M/mm3 (4.60-6.20); Red Cell Distribution Width 12.8 % (11.5-17.5); Red Cell Distribution Width-SD 41.6 fL; White Blood Count 7.6 K/mm3 (4.8-10.8)
[2024-11-24 15:04] LABS: D-Dimer 0.62 ug/mL (0.0-0.5)
[2024-11-24 15:20] LABS: Chloride 101 mmol/L (98-107); Potassium 4.8 mmoL/L (3.5-5.1); Sodium 138 mmol/L (136-145)
[2024-11-24 15:23] LABS: Alanine Aminotransferase 28 U/L (12-78); Alkaline Phosphatase 83 U/L (38-126); Anion Gap 11.8 mEq/L (5-15); Aspartate Amino Transferase 25 U/L (17-59); Bilirubin,Direct 0.1 mg/dl (0.0-0.4); Bilirubin,Indirect 0.6 mg/dL (0.0-0.9); Bilirubin,Total 0.7 mg/dl (0.2-1.3); Bilirubin,Unconjugated 0.6 mg/dL (0.0-1.1); Blood Urea Nitrogen 19 mg/dl (9-20); Calcium 9.5 mg/dl (8.4-10.2); Carbon Dioxide 30 mmol/L (22.0-30.0); Cholesterol 159 mg/dl (140-200); Estimated Glomerular Filt Rate 68 ml/min (>60); GFR (African American) 82 ML/MIN (>60); Glucose 99 mg/dl (74-100); Total Protein,Serum 6.6 g/dl (6.3-8.2); Triglycerides 133 mg/dl (30-150); VLDL Cholesterol 27 mg/dL (0-40)
[2024-11-24 15:24] LABS: Chol/HDL Ratio 3.5 (1-3.5); HDL Cholesterol 45 mg/dl (40-60); Magnesium 1.9 mg/dl (1.6-2.3)
[2024-11-24 15:33] LABS: NT Pro Brain Natriuretic Pep. 117 pg/mL (0-125)
[2024-11-24 15:35] LABS: Direct LDL Cholesterol 90.81 mg/dL (100-129)
[2024-11-24 15:38] LABS: Free T4 (Free Thyroxine) 0.94 ng/dl (0.78-2.19)
[2024-11-24 15:55] LABS: Thyroid Stimulating Hormone 5.35 uIU/mL (0.465-4.68)
== END 2024-11-24 23:59 | disposition home or self-care (01) ==
LOC: RT 13:59
PROVIDERS: PCP Nurse Practitioner Family; Visit Provider Internal Medicine
DX: R00.2 Palpitations (principal); I10 Essential (primary) hypertension; R06.02 Shortness of breath; R07.89 Other chest pain; R40.0 Somnolence; R53.83 Other fatigue; E78.5 Hyperlipidemia, unspecified
CPT/HCPCS: 36415; 80048; 80061; 80076; 83735; 83880; 84439; 84443; 85025; 85378; 93270

== ENCOUNTER 2024-11-25 09:42 | Outpatient (CLI) | payer OTHER, SELFPAY ==
[2024-11-25] MEDS: ALBUTEROL 0.083% 2.5 MG/3 ML NEB IH (10:45)
[2024-11-25] MEDS: SODIUM CHLORIDE 0.9% 10ML SYR (RAD ONLY) 10 ML IV (11:04)
[2024-11-25] MEDS: IOPAMIDOL-370 (76%);100ML BOTTLE 80 ML IV (11:04)
[2024-11-25] MEDS: 0.9 % SODIUM CHLORIDE 50 ML VIAL IV (11:04)
--- NOTE | 2024-11-25 11:30 | CT_ITS ---
FINAL REPORT TECHNIQUE: Thin section axial CT with contrast with multiplanar reconstruction This study was performed with techniques to keep radiation doses as low as reasonably achievable, (ALARA). Individualized dose reduction techniques using automated exposure control or adjustment of mA and/or kV according to the patient's size were employed. CLINICAL HISTORY: elevated d dimer COMPARISON: None FINDINGS: CTA CHEST: Pulmonary vessels enhance in normal fashion without evidence of embolism. Thoracic aorta shows no dissection or aneurysm. No pulmonary mass or infiltrate is present. There is no significant pleural effusion. There is no significant pericardial effusion. There is bilateral upper right paratracheal adenopathy, with nodes measuring up to 11 mm in size, likely benign reactive given larger calcified mediastinal lymph nodes. Upper abdomen displays fatty liver and borderline splenomegaly. IMPRESSION: 1. No evidence of pulmonary embolism or acute lung disease. Reviewed, Interpreted and Dictated by Kaya Bales MD Transcribed by Kathy Griffin Authenticated and [facility]
== END 2024-11-25 23:59 | disposition home or self-care (01) ==
LOC: RT 09:43
PROVIDERS: PCP Nurse Practitioner Family; Visit Provider Nurse Practitioner Family
DX: R06.02 Shortness of breath (principal); R07.9 Chest pain, unspecified; R79.89 Other specified abnormal findings of blood chemistry
CPT/HCPCS: 71275; 94010; 94727; 94729; J7613; Q9967

== ENCOUNTER 2024-12-07 10:19 | Emergency (ER) | payer OTHER, SELFPAY ==
[2024-12-07 10:29] VITALS: BP 129/78; PULSE 74; RESP 19; TEMP 36.9; O2SAT 95; BMI 40.6
[2024-12-07 10:30] VITALS: BP 130/78; PULSE 74; O2SAT 94
[2024-12-07] MEDS: KETOROLAC 30MG/ML VIAL 30 MG IM (10:34)
--- NOTE | 2024-12-07 10:35 | PC.NURSE ---
rt thump spica placed on pt right hand and signed for no other need or complaints at this time
--- NOTE | 2024-12-07 10:44 | HMH.EDGENADL ---
Discharge Plan Disposition Patient Disposition: Home, Self-Care Condition: Good Prescriptions Prescriptions: New naproxen 500 mg tablet 500 mg PO BID 14 Days Qty: 28 0RF No Action quetiapine 25 mg tablet See Rx Instructions .ROUTE .COMPLEX Qty: 90 2RF Dose Instruction: TAKE ONE TABLET BY MOUTH AT BEDTIME Rx Instructions: TAKE ONE TABLET BY MOUTH AT BEDTIME hydroxyzine pamoate [Vistaril] 25 mg capsule 25 mg PO BID PRN (Reason: anxiety) Qty: 60 3RF Vraylar 1.5 mg capsule 1.5 mg PO DAILY Qty: 30 3RF gabapentin 800 mg tablet 800 mg PO TID 14 Days Qty: 90 2RF ergocalciferol (vitamin D2) 1,250 mcg (50,000 unit) capsule See Rx Instructions .ROUTE .COMPLEX Qty: 4 0RF Dose Instruction: TAKE 1 CAPSULE BY MOUTH ONCE WEEKLY Rx Instructions: TAKE 1 CAPSULE BY MOUTH ONCE WEEKLY lisinopril 5 mg tablet See Rx Instructions .ROUTE .COMPLEX Qty: 90 0RF Dose Instruction: TAKE ONE TABLET BY MOUTH ONCE A DAY FOR HIGH BLOOD PRESSURE Rx Instructions: TAKE ONE TABLET BY MOUTH ONCE A DAY FOR HIGH BLOOD PRESSURE cholecalciferol (vitamin D3) 50 mcg (2,000 unit) tablet See Rx Instructions .ROUTE .COMPLEX Qty: 30 0RF Dose Instruction: TAKE ONE TABLET BY MOUTH ONCE A DAY NEEDED FOR LOW VITAMIN D Rx Instructions: TAKE ONE TABLET BY MOUTH ONCE A DAY NEEDED FOR LOW VITAMIN D cetirizine 10 mg tablet See Rx Instructions .ROUTE .COMPLEX Qty: 30 0RF Dose Instruction: TAKE ONE TABLET BY MOUTH ONCE A DAY Rx Instructions: TAKE ONE TABLET BY MOUTH ONCE A DAY fluticasone propionate 50 mcg/actuation spray,suspension See Rx Instructions .ROUTE .COMPLEX Qty: 16 0RF Dose Instruction: INSTILL 1 SPRAY INTO EACH NOSTRIL ONCE A DAY Rx Instructions: INSTILL 1 SPRAY INTO EACH NOSTRIL ONCE A DAY atorvastatin 20 mg tablet See Rx Instructions .ROUTE .COMPLEX Qty: 30 0RF Dose Instruction: TAKE ONE TABLET BY MOUTH ONCE A DAY Rx Instructions: TAKE ONE TABLET BY MOUTH ONCE A DAY levothyroxine 50 mcg capsule 50 mcg PO DAILY Qty: 30 2RF buspirone 10 mg tablet 10 mg PO BID Qty: 60 2RF Referrals Follow up/Referrals: Evan Osorio APRN [Primary Care Provider] - See instructions Dill,Gene Jamey, DO [Staff Physician] - See instructions Activity Restrictions/Add. Instructions Additional Instructions/Restrictions: You were evaluated in the emergency department today. At this time based on your exam, I feel that you likely have de Quervain's tenosynovitis. Please use your wrist splint. He may take it off to shower, however apply it again afterward. Rest, ice, and elevate your right upper extremity to reduce pain and swelling. 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 You may also take Tylenol every 4-6 hours as needed for pain. Call orthopedics office to schedule an appointment. Return to the emergency department for new or worsening symptoms. Clinical Impressions Clinical Impression: De Quervain's tenosynovitis, right Stand Alone Forms Stand Alone Forms: Work/School Release Instructions Patient Instructions: DI for Acute Pain -- Adult, DI for Tenosynovitis, DI for De Quervaine Tenosynovitis Print Language Print Language: American Discharge ED Provider: Esperanza Armstrong General Adult HPI General Chief complaint: PAIN Stated complaint: AO 12/06/24 1200. inj rt arm Time Seen by Provider: 12/07/24 10:22 Mode of Arrival: Ambulatory Source of Information: Patient Description of Symptoms (Recalled from ER Triage Doc. by RN): pt presents to ED with c/o right wrist pain. pt reports that he was using a saw linda for 3-4 hours yesterday. pain today with movement of wrist. History of Present Illness HPI narrative: This patient is a 64-year-old male with a history of obesity, hypertension, hyperlipidemia presenting to the emergency department for evaluation of concern for right thumb pain. Patient states that he was using a saw for 3 to 4 hours yesterday with repetitive movements cutting metal, and since then he has been having significant pain in his right wrist on his thumb side of his wrist extending into his hand and up into his forearm. He states that he has pain with movement of his wrist, especially with ulnar deviation. No falls or injuries noted. No numbness, tingling, or other concerns. No open wounds. Related Data Previous Rx's ?Medication ?Instructions ?Recorded ergocalciferol (vitamin D2) 1,250 See Rx Instructions .Route 06/05/23 mcg (50,000 unit) capsule .COMPLEX #4 caps quetiapine 25 mg tablet See Rx Instructions .Route 10/02/23 .COMPLEX #90 tabs lisinopril 5 mg tablet See Rx Instructions .Route 07/19/24 .COMPLEX #90 tabs cariprazine 1.5 mg capsule 1.5 mg PO DAILY #30 caps 08/24/24 (Vraylar) hydroxyzine pamoate 25 mg capsule 25 mg PO BID PRN anxiety #60 caps 08/24/24 (Vistaril) cetirizine 10 mg tablet See Rx Instructions .Route 09/24/24 .COMPLEX #30 tabs cholecalciferol (vitamin D3) 50 See Rx Instructions .Route 09/24/24 mcg (2,000 unit) tablet .COMPLEX #30 tabs atorvastatin 20 mg tablet See Rx Instructions .Route 10/21/24 .COMPLEX #30 tabs fluticasone propionate 50 See Rx Instructions .Route 10/21/24 mcg/actuation nasal .COMPLEX #16 grams spray,suspension gabapentin 800 mg tablet 800 mg PO TID Arthritis 2 weeks 11/17/24 #90 tabs buspirone 10 mg tablet 10 mg PO BID #60 tabs 12/07/24 levothyroxine 50 mcg capsule 50 mcg PO DAILY #30 caps 12/07/24 naproxen 500 mg tablet 500 mg PO BID 14 days #28 tabs 12/07/24 Allergies Allergy/AdvReac Type Severity Reaction Status Date / Time No Known Allergies Allergy Verified 11/24/24 13:17 [facility] Disclaimer: The information contained in this section may have been updated after the patient was seen, as this information can be updated by other users. 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 Elevated d-dimer Palpitations Dizziness Edema Chest pain Neoplasm of uncertain behavior of skin Ankle dislocation Trimalleolar fracture of ankle, closed Torn muscle Acute maxillary sinusitis Contusion of rib on left side Dental abscess Screening due Abrasion head Hyperlipidemia Hypertension Neuropathy Neck pain Back pain Social History Smoking Status: Never smoker second hand exposure: No alcohol intake: current alcohol intake frequency: a few times a week substance use type: denies use current occupational status: disabled Travel in the last 8 weeks: None household members: none housing: apartment current occupational exposures/hazards: No caffeine: Yes Have you lived/traveled outside US in past 30 days?: No Contact w/someone who lives/traveled outside US past 30 days?: No Exposure to someone with infectious disease in past 14 days?: No Do you have a fever (greater than 100.4 F or 38 C)?: No Have you tested positive for COVID-19: No Exposed to someone with COVID-19 in past 14 days?: No Do you have a sore throat?: No Do you have a cough?: No Do you have any weakness?: No Do you have any diarrhea?: No Are you experiencing any unusual bleeding?: No Do you have any muscle aches/pain?: No Do you have any abdominal pain?: No Are you experiencing loss of taste or smell?: No Other 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 Have you received the Flu Vaccine for this season: No Have you received the Pneumonia Vaccine: No ROS Obtained: Yes All systems reviewed & no additional complaints except as documented Physical Exam General General appearance: alert and in no apparent distress Head Head exam: atraumatic and normocephalic Eye Eye exam: Present normal appearance, PERRL and EOMI ENT ENT exam: Present normal exam, normal oropharynx, mucous membranes moist and normal external ear exam Neck Neck exam: Present normal inspection, full ROM and trachea midline; Absent tenderness Chest Chest inspection: Present normal inspection and symmetric chest wall rise; Absent tenderness Respiratory Respiratory exam: Present normal lung sounds bilaterally; Absent respiratory distress, wheezes, stridor or accessory muscle use Cardiovascular Cardiovascular exam: Present regular rate and normal rhythm Abdominal Exam Abdominal exam: Present soft; Absent distention, tenderness or guarding Extremities Exam Extremities exam: Present tenderness, normal capillary refill and other (Tenderness to palpation on the thumb side of the right wrist and forearm with positive Claribel test. All compartment soft, neurovascularly intact distally. No skin lesions); Absent edema Back Exam Back exam: Present normal inspection and full ROM; Absent tenderness Neurological Exam Neurological exam: Present alert, oriented X3, CN II-XII intact and normal gait; Absent motor sensory deficit Psychiatric Psychiatric exam: Present normal affect and normal mood Skin Skin exam: Present warm and dry Medical Decision Making Medical Records Medical records reviewed: Yes I reviewed the patient's medical records. Screening: Per USPSTF and CDC recommendations, given the prevalence of disease in our region, it is our hospital?s policy to screen for HIV and viral Hepatitis for all patients aged 18 and over and those with ongoing risk factors. Raymond Inquiry Pt receiving controlled substance: No Vital Signs: 12/07/24 10:29 12/07/24 10:30 12/07/24 10:46 Temperature 98.4 F 98.4 F Temperature Source Oral Pulse Rate 74 76 Pulse Rate [Left Radial] 74 Respiratory Rate 19 18 Blood Pressure 130/78 130/78 Blood Pressure [Right Arm] 129/78 Blood Pressure Mean 95 Blood Pressure Mean [Right Arm] 95 02 Sat by Pulse Oximetry 95 94 L Oxygen Delivery Method Room Air Lab Data Lab results reviewed: Yes I reviewed the patient's lab results. Orders (Tests/Meds): ED MEDICATIONS Discontinued Medications Generic Name Dose Route Start Last Admin Trade Name Caitlin PRN Reason Stop Dose Admin Ketorolac Tromethamine 30 mg 12/07/24 10:31 12/07/24 10:34 Ketorolac 30mg/Ml Vial IM 12/07/24 10:32 30 mg ONCE ONE Administration Medical Decision Narrative: In summary, this patient is a 64-year-old male presenting to the Emergency Department for evaluation of right thumb pain/wrist pain. Differential diagnoses considered include but are not limited to de Quervain's tenosynovitis, tendinitis, musculoskeletal strain/sprain. Ruling out the most morbid conditions drove assessment. It should be noted patient's history includes obesity, hypertension, hyperlipidemia which may not be at goal therapy. This complicates all aspects of care by increasing patient's risk for morbidity. On exam, the patient has tenderness to palpation on the thumb side of his right wrist/hand and has positive Claribel test concerning for possible de Quervain's tenosynovitis. 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 I feel he is appropriate for treatment with NSAIDs and discharge home with thumb spica splint and close follow-up with orthopedics. He was placed in a thumb spica splint which he tolerated well. This is a removable prefabricated splint. He is neurovascularly intact afterward. He was given IM Toradol and a prescription for naproxen. He was discharged with instructions for supportive management and close follow-up with orthopedics as well as PCP. Strict return precautions given. Critical Care Critical Care Time Critical Care Time: No
[2024-12-07 10:46] VITALS: BP 130/78; PULSE 76; RESP 18; TEMP 36.9; O2SAT 93
== END 2024-12-07 10:53 | disposition home or self-care (01) ==
PROVIDERS: Emergency Provider Emergency Medicine; PCP Nurse Practitioner Family
DX: M65.4 Radial styloid tenosynovitis [de Quervain] (principal); X50.3XXA Overexertion from repetitive movements, initial encounter
CPT/HCPCS: 96372; 99283; J1885

== ENCOUNTER → 2024-12-18 20:12 | Outpatient (CLI) | payer OTHER, SELFPAY | LOC: SL 20:15 | PROVIDERS: PCP Nurse Practitioner Family; Visit Provider Family Medicine | DX: G47.33 Obstructive sleep apnea (adult) (pediatric) (principal); R53.83 Other fatigue; R40.0 Somnolence; R06.83 Snoring | CPT/HCPCS: 95810 ==

== ENCOUNTER → 2025-06-28 10:17 | Outpatient (CLI) | payer OTHER, SELFPAY ==
--- OUTSIDE RECORDS SUMMARY | 2025-06-28 10:22 | XMS_ITS | Clinical Summary ---
Author Organization [facility] Address [address] [place] [address] Phone Care Team Providers [facility] Service [facility] Appraiser Name Role Phone Unavailable Primary Care Provider Unavailabl e Social History Tobacco Use Types Packs/Day Years Used Date Smoking Tobacco: Never Assessed Sex and Gender Information Value Date Recorded Sex Assigned at Not on file Legal Sex Male 4:25 AM EDT Gender Identity Not on file Sexual Orientation Not on file Plan of Treatment Health Maintenance Due Date Last Done Comments Annual Wellness Exam 1965 Hepatitis C Screening 1980 DTaP/TDaP/Td (1 - Tdap) 1981 Cologuard 2007 Colon Cancer Screening 2007 Colonoscopy 2007 FIT 2007 Sigmoidoscopy 2007 Virtual Colonography 2007 Pneumococcal Vaccine 50+ (1 of 1 - PCV) 2012 Zoster (1 of 2) 2012 COVID-19 Vaccine (2024-2 6 season) 2025 Influenza Vaccine (#1) 2025 Hepatitis B Vaccine Aged Out No longe r eligible based on patient's age to complete this topic Meningococcal B Vaccine Aged Out No l onger eligible based on patient's age to complete this topic
== END ==
LOC: SL 10:17
PROVIDERS: PCP Nurse Practitioner Family; Visit Provider Internal Medicine Pulmonary Disease
DX: G47.33 Obstructive sleep apnea (adult) (pediatric) (principal)
CPT/HCPCS: 94762

== ENCOUNTER 2025-08-01 15:01 | Outpatient (CLI) | payer OTHER, SELFPAY ==
--- NOTE | 2025-08-01 15:30 | CT_ITS ---
PROCEDURE INFORMATION: Exam: CT Chest Without Contrast, Diagnostic, High Resolution Exam date and time: 08/01/2025 3:07 PM Age: 65 years old Clinical indication: Shortness of breath; Additional info: SOA, HX of pneumonia TECHNIQUE: Imaging protocol: Diagnostic computed tomography of the chest without contrast. Exam was performed with high resolution protocol. Radiation optimization: All CT scans at this facility use at least one of these dose optimization techniques: automated exposure control; mA and/or kV adjustment per patient size (includes targeted exams where dose is matched to clinical indication); or iterative reconstruction. COMPARISON: CT ANGIO CHEST PE PROTOCOL 11/25/2024 11:01 AM FINDINGS: Lungs: No consolidation. No masses. No bronchiectasis. No honeycombing. A 7 mm calcified granuloma in the anterior right upper lobe. Pleural spaces: Unremarkable. No pneumothorax. No pleural effusion. Heart: No cardiomegaly. No pericardial effusion. Coronary arteries: Coronary artery calcifications are present. Vasculature: No thoracic aortic aneurysm. Lymph nodes: Mildly enlarged 1.1 cm right retrotracheal lymph node (series 2, image 16), stable compared to 11/25/2024, nonspecific. A few calcified right lower paratracheal and hilar lymph nodes, compatible with sequela of prior granulomatous infection. Bones/joints: Unremarkable. No acute fracture. Soft tissues: Unremarkable. IMPRESSION: Unremarkable high-resolution CT chest. No acute finding.
== END 2025-08-01 23:59 | disposition home or self-care (01) ==
LOC: RAD 15:02
PROVIDERS: PCP Nurse Practitioner Family; Visit Provider Internal Medicine Pulmonary Disease
DX: J98.4 Other disorders of lung (principal); Z87.01 Personal history of pneumonia (recurrent)
CPT/HCPCS: 71250